=== PATIENT | male | born 1980 | race Caucasian/White ===

== ENCOUNTER 2017-03-16 20:04 | Inpatient (IN) ==
[2017-03-16] MEDS ORDERED: oxyCODONE/ACETAMINOPHEN 5-325 MG TABLET PO STA (21:34)
[2017-03-16] MEDS ORDERED: oxyCODONE/ACETAMINOPHEN 5-325 MG TABLET ONE (21:43)
--- NOTE | 2017-03-16 22:17 | Emergency Department Note ---
IChris Mantricia, am scribing for, and in the presence of, Vianey Roth DO 20:50. I, Vianey Roth DO, personally performed the services described in this documentation, ascribed by Charlie Perez in my presence, and it is both accurate and complete 216 . Arrival - Arrival Chief Complaint: Extremity Problem Stated Complaint: KNOT ON RIGHT SIDE OF SHOULDER/HURTING ED Nursing Triage Note: Patient to triage with c/o knot on right upper back behind shoulder that he just noticed today. area painful to touch and swollen. patient denies any injury to area. Mode of Arrival: Ambulatory Limitations: No Limitations Source: Patient Time Seen by Provider: 03/16/17 20:32 - History of Present Illness HPI Narrative: Pt is a 36 y/o white male arriving to ED with c/o right shoulder/back pain that started this morning. He stated that once he noticed the pain, he looked at his shoulder and there was a knot on the right side of his upper back. He states the area is painful to touch, swollen, and he is not able to raise his right arm. He describes the pain as constant with radiation down his arm. Pt reports taking a BC for pain but he has had no relief. Pt admits to smoking at least one pack of cigarettes per day but denies drugs or alcohol. He denies any other complaints and does not take any other medications. Onset (ago): day(s) Consistency: constant Severity: mild Allergies/Adverse Reactions: Allergies Allergy/AdvReac Type Severity Reaction Status Date / Time Penicillins AdvReac Difficulty Verified 03/16/17 20:12 Breathing Home Medications: Home Medications Medication Instructions Recorded Confirmed Type No Known Home Medications [No 03/16/17 03/16/17 History Known Home Medications] Review of System - Review of System 12 point system: reviewed and no additional remarkable complaints except as stated - Review of System Constitutional: Absent: chills, diaphoresis, fever Eyes: Absent: discharge, pain, redness Head/Ears/Nose/Throat: Absent: earache, epistaxis Respiratory: Absent: cough, respiratory distress, wheezing Cardiovascular: Absent: chest pain, palpitations Gastrointestinal: Absent: abdominal pain, nausea, vomiting, diarrhea Genitourinary male: Absent: urgency, dysuria, frequency Musculoskeletal: Present: arm pain (right), upper back pain (right upper back with swelling). Absent: leg pain, neck pain Skin: Absent: rash, lesions Neurological: Absent: headache, weakness Medical,Surgical,& Family Hx - Medical History Cardio: No history of: Hypertension Endocrine: No history of: Diabetes Mellitus (IDDM), Diabetes Mellitus (NIDDM) Respiratory: No history of: Asthma, COPD Renal: No history of: Renal Problems Genitourinary: No history of: Kidney Stones, Problems Gastrointestinal: No history of: Liver Problems, GI Problems - Surgical History Abdominal Surgeries: Surgical HX of: Appendectomy (1996), Hernia Repair (7 repairs) - Social History Smoking Status: Current every day smoker Frequency of Alcohol Use: None Type of Drug Use: None Exam Vital Signs: Vital Signs Temperature 97.4 F L 03/16/17 20:09 Pulse Rate 80 03/16/17 20:09 Respiratory Rate 16 03/16/17 20:09 Blood Pressure 123/75 03/16/17 20:09 O2 Sat by Pulse Oximetry 99 03/16/17 20:09 - General General appearance: alert, in no apparent distress - Head Head exam: Present: atraumatic, normocephalic, normal inspection - Eye Eye exam: Present: normal appearance, PERRL, EOMI - ENT ENT exam: Present: normal exam, normal oropharynx, mucous membranes moist, TM's normal bilaterally, normal external ear exam - Neck Neck exam: Present: normal inspection, full ROM, trachea midline. Absent: tenderness - Chest Chest inspection: Present: normal inspection, symmetric chest wall rise. Absent : tenderness - Respiratory Respiratory exam: Present: wheezes - Cardiovascular Cardiovascular exam: Present: normal rhythm, tachycardia, normal heart sounds - Abdominal Exam Abdominal exam: Present: soft, normal bowel sounds. Absent: distention, tenderness, guarding, rebound - Extremities Exam Extremities exam: Present: normal inspection, full ROM, normal capillary refill. Absent: tenderness, pedal edema - Back Exam Back exam: Present: tenderness, other (8x3 rectangular induration within back from armpit; TTP; no fluctuance noted) - Neurological Exam Neurological exam: Present: alert, oriented X3, CN II-XII intact, normal gait, reflexes normal - Psychiatric Psychiatric exam: Present: normal affect, normal mood - Skin Skin exam: Present: warm, dry, intact, normal color Course Course Narrative: [place] given for pain with mild relief. Bedside US does not reveal mass despite obvious exam finding. Decision to CT chest WO contrast for pulled muscle vs abscess vs ? Percocet given for continued pain with some relief. Radiologist called and reported large 5x3cm mass likely metastasis. Mulitple spiculated RUL lung lesion noted with large hilar lymphadenopathy noted. Patient was told of results. Will be admitted to Hospitalist for further workup. labs ordered. Results - Diagnostic Findings Procedure: CT - chest: image reviewed by me, report reviewed by me (Large 5x3 bony metastasis, hilar lymphadenopathy, RUL lung mass spiculated approx 3cm, likely cancer) Disposition Clinical Impression: Lung cancer metastatic to bone Case discussed with: patient Disposition: Still a Patient Condition: Stable
[2017-03-16 22:22] LABS: Basophils # 0.1 10*3/uL (0.0-0.2); Basophils % 0.7 % (0.0-0.8); Eosinophils # 0.3 10*3/uL (0.0-0.87); Eosinophils % 3.6 % (0.00-10.9); Hematocrit 37.4 VOL% (42.0-52.0); Immature Granulocytes % 0.5 %; Immature Granulocytes Absolute 0.05 #; Lymphocytes # 2.1 10*3/uL (1.4-4.0); Lymphocytes % 22.3 % (21.2-54.2); Mean Corpuscular HGB Conc 34.8 GM/DL (32-36); Mean Corpuscular Hemoglobin 32 PG (27-34); Mean Corpuscular Volume 92.8 FL (87-102); Mean Platelet Volume 10.3 FL (9.6-12.0); Monocytes # 0.6 10*3/uL (0.11-0.8); Monocytes % 6.1 % (1.7-12.7); Neutrophils # 6.2 10*3/uL (1.4-7.4); Neutrophils % 66.8 % (38.7-73.9); Platelet Count 216 T/CUMM (130-400); Red Blood Count 4.03 MC/CUMM (3.8-5.5); White Blood Count 9.2 T/CUMM (4-12)
[2017-03-16 22:39] LABS: Albumin 3.6 G/DL (3.4-5.0); Bilirubin,Total 0.4 MG/DL (0.2-1.0); Calcium 8.1 MG/DL (8.5-10.1); Osmolality,Calculated 289.8 MOS/KG (273-304); Potassium 3.7 MMOL/L (3.5-5.1); Total Protein 6.1 G/DL (6.4-8.3)
--- NOTE | 2017-03-16 23:26 | Hospitalist History & Physical ---
Assessment and Plan (1) Metastatic cancer Status: Acute Assessment and plan: Unknown to patient prior tonight. Chief complaint was shoulder pain which turned out to be a bony met. He has a past history of colon cancer several years ago but recent scans have not shown any signs of this. He only received radiation, no chemotherapy or surgery. He has a long smoking history and a strong family history of both lung and colon cancer. I suspect that the histology will be adenocarcinoma with a colon versus long origin. I suspect that the next best step will be an interventional radiology bone biopsy of the right scapular tumor as it is an easily accessible distant met. I advised patient that prognosis and treatment will very much depend on the genetics of his cancer. Checking coags in preparation for likely bone biopsy on Saturday. Should notify oncology of admission in the morning for approval of workup. I spent a long time counseling the patient and his family on options for treatment including palliative radiation, systemic chemotherapy, and the unlikelihood that surgery would be of any benefit. Current Visit: Yes (2) Cancer related pain Status: Acute Assessment and plan: Start IV morphine as needed and start dexamethasone for bony pain. May benefit from palliative radiation to right scapula +/- bisphosphonate. Current Visit: Yes (3) Hyperglycemia Status: Acute Assessment and plan: Patient denies history of diabetes. Check fasting glucose in the morning. Current Visit: Yes History of Present Illness Chief complaint: Shoulder pain History of present illness: Mr. Grover is a 36 year old male with past history of colon cancer that presented with a chief complaint of shoulder pain. Onset gradual. Duration several days. Quality Sharp and constant. Somewhat relieved by Percocet given in the emergency department. Patient is a man of few words and is not entirely forthcoming about his past medical history. His son and [id number] present at the bedside are illuminating. Apparently when his adult son was a child, maybe 12 years ago he received radiation for colon cancer. They wanted to do a colon resection with an ostomy at that time but as he was averse to the ostomy and he was lost to follow-up. He did not receive chemotherapy. He continues to have trouble passing stools but denies any vomiting, weight loss, blood in stool. Several members of his family on his mother's side have had lung and colon cancer. In the [place] emergency department in workup of his shoulder pain he received a CT scan which revealed a 5 x 3 cm mass in the scapula as well as lymphadenopathy in the chest and a 3 cm right upper lobe mass. He denies any dyspnea, cough, hematemesis. He denied any chest pain but his family says that he will sometimes have chest pain. He is interested in pursuing a workup. He denied any headache, numbness, focal weakness. He is a pack per day smoker for many years. I have reviewed the workup performed in the emergency department including lab and imaging data. I have reviewed past scans in the chart. I have discussed his case with emergency department providers. Home Medications Medication Instructions Recorded Confirmed Type No Known Home Medications [No 03/16/17 03/16/17 History Known Home Medications] Allergies Allergy/AdvReac Type Severity Reaction Status Date / Time Penicillins AdvReac Difficulty Verified 03/16/17 20:12 Breathing Medical,Surgical,& Family Hx - Medical History Cardio: No history of: Hypertension Endocrine: No history of: Diabetes Mellitus (IDDM), Diabetes Mellitus (NIDDM) Respiratory: No history of: Asthma, COPD Renal: No history of: Renal Problems Genitourinary: No history of: Kidney Stones, Problems Gastrointestinal: History of: Gastrointestinal Cancer (Colon cancer several years ago, received radiation) No history of: Liver Problems, GI Problems - Surgical History Abdominal Surgeries: Surgical HX of: Appendectomy (1996), Hernia Repair (7 repairs) - Family History Family History: Reports;: Family Cancer (Multiple members of mother's family with lung and colon cancer), Family Diabetes - Social History Smoking Status: Current every day smoker Have you smoked in the last 12 months: Yes Frequency of Alcohol Use: None Type of Drug Use: None Marital Status: Single Lives With:: Children Functional capacity: independent ambulation Review of systems: - Constitutional Constitutional: Absent: chills, fatigue, fever(s), night sweats, weight loss - EENT Eyes: Absent: blurry vision Ears: Absent: decreased hearing, ear pain Nose, mouth and throat: Absent: nasal congestion, sore throat - Cardiovascular Cardiovascular: Absent: chest pain at rest, chest pain with activity, dyspnea on exertion, edema, orthopnea, palpitations - Respiratory Respiratory: Absent: cough, dyspnea, hemoptysis - Gastrointestinal Gastrointestinal: Present: Constipation absent: abdominal pain, diarrhea, dysphagia, hematemesis, hematochezia, melena, nausea, vomiting - Genitourinary Genitourinary: Absent: difficulty urinating, dysuria, hematuria - Musculoskeletal Musculoskeletal: Present: Right shoulder pain - Neurological Neurological: Absent: confusion, dizziness, focal weakness, headache(s), numbness, paresthesias, syncope - Psychiatric Psychiatric: Absent: anxiety, depression - Endocrine Endocrine: Absent: cold intolerance, heat intolerance, polydipsia, polyuria - Hematologic/Lymphatic Hematologic/Lymphatic: Absent: easy bleeding, easy bruising, lymphadenopathy Exam - Constitutional Vitals: Period Temp Pulse Resp BP Sys/Villaseñor Pulse Ox Last 24 Hr 97.4 F-97.4 F 80-95 16-18 123-160/75-90 99-99 General appearance: over weight, other (Middle-aged white male lying on stretcher pleasant cooperative) Exam: - Eye Eye exam: Present: EOMI. Absent: conjunctival injection, scleral icterus Pupils: Present: [place] - ENT ENT exam: Present: normal external ear exam, normal oropharynx - Expanded ENT Exam Mouth exam: Present: moist, poor dentition - Neck Neck exam: Present: normal inspection. Absent: lymphadenopathy, thyromegaly - Respiratory Respiratory exam: Present: Focal wheezing in right upper lobe, otherwise clear to auscultation bilaterally. Absent: accessory muscle use, rales, rhonchi - Cardiovascular Cardiovascular exam: Present: regular rate and rhythm. Absent: diastolic murmur , systolic murmur - Expanded Cardiovascular Exam Peripheral pulses: 2+: posterior tibialis (L), posterior tibialis (R) - GI/Abdominal GI/Abdominal exam: Present: normal bowel sounds, soft. Absent: distended, hyperactive bowel sounds, hypoactive bowel sounds, organomegaly, tenderness, rebound - Extremities Exam Extremities exam: Present: Large hyperpigmented area with excessive hair growth over right shoulder. Lower scapula with firm and exquisitely tender area. Absent: edema - Neurological Exam Neurological exam: Present: alert, oriented X3, CN II-XII intact. Absent: motor sensory deficit - Psychiatric Psychiatric exam: Present: normal affect - Skin Skin exam: Present: warm, dry. Absent: diaphoretic, rash Results - Labs CBC & BMP: 03/16/17 22:10 03/16/17 22:10 - Diagnostic Findings Procedure: CT - chest: report reviewed by me
[2017-03-17] MEDS ORDERED: ACETAMINOPHEN 325 MG TABLET PO PRN (00:37)
[2017-03-17] MEDS: DEXAMETHASONE 4 MG TABLET PO SCH ×3 (01:10→21:05)
[2017-03-17] MEDS: ENOXAPARIN 40 MG/0.4 ML SYRINGE SUBCUT SCH (01:10)
--- NOTE | 2017-03-17 07:54 | CT Report ---
CT chest wo con Indication: Clinical concern for abscess. Location not specified. History provided "large induration painful. Abscess versus muscle" Comparison: None. Technique: CT chest was performed without administration of intravenous contrast. In addition to multiple contiguous axial source images, coronal and sagittal MPR series were provided. The CT examination was performed using one or more of the following dose reduction techniques: Automatic exposure control, adjustment of the mA and kV according to patient size, use of acute or iterative reconstruction techniques. Findings: Right perihilar mass measuring 2.3 x 2.9 x 3.3 cm is present with additional focal air space attenuation suggesting nodule along the major fissure within the right upper lobe image #37. Additionally present within the right upper lobe, there are thickened intralobular septal lines and some thickening of interlobular septal lines with the appearance noted. Additionally within the right upper lobe image #37, small 3 to 4 mm subpleural pulmonary nodule is demonstrated. Additional pulmonary nodule right upper lobe image #49 measures 6 to 7 mm. Small noncalcified pulmonary nodules left lower lobe image #[id number] measures 45 mm maximum dimension. Pulmonary nodule left upper lobe image #55 is not calcified and measures 6 to 7 mm. Additional 3 to 4 mm subpleural pulmonary nodule lateral left upper lobe image #48 is present. Calcified granuloma left upper lobe image #45 is present. 3 to 4 mm noncalcified pulmonary nodule left upper lobe image #42 is present. Within the left lower lobe there is a geographic region of relative hypoattenuation of lung parenchyma that could reflect air trapping or mosaic perfusion. No pleural effusions are present. The right upper lobe bronchus is significantly narrowed by the described central right upper lobe mass. In addition to the right upper lobe mass, enlarged right hilar lymph nodes are present measuring up to 3 cm in short axis dimension image #48. Subcarinal lymph nodes are also enlarged measuring 3.0 cm short axis dimension. Upper right paratracheal lymph nodes are enlarged measuring 1.8 cm short axis dimension. There is a permeative lesion involving the right scapular tip with cortical destruction and soft tissue mass that measures 4.3 x 5.4 x 4.5 cm. Spleen is enlarged measuring 19.6 x 4.0 by at least 10.7 cm. No adenopathy is noted within the upper abdomen. Impression: 1. Permeative expansile lesion with cortical destruction involving the right scapular tip is demonstrated with soft tissue mass associated. The appearance is most worrisome for neoplastic process. 2. Multiple pulmonary nodules are demonstrated bilaterally throughout the lung parenchyma the largest of which lies within the right upper lobe adjacent to the hilum. Accompanying these nodules, multiple lymph nodes within the right hilum, subcarinal mediastinum, and right paratracheal region are enlarged. These findings are most worrisome for neoplasm. Given the number of noncalcified pulmonary nodules, metastatic disease is not excluded. 3. The lung parenchyma within the right upper lobe demonstrates thickened appearance of intralobular septal lines and some beaded appearing thickened interlobular septal lines. Lymphangitic spread of carcinoma cannot be excluded. Other considerations could include infection. 4. The visualized portion of the upper abdomen with the exception of splenomegaly demonstrates no abnormality. Also, no additional bony lesions are demonstrated. 03/17/2017 7:37 AM PROCEDURE INTERPRETED AT [facility] DEPARTMENT OF RADIOLOGY Final Report Signed by: Dr. Aryan Finn
[2017-03-17] MEDS: MORPHINE 2 MG/1 ML SYRINGE IV PRN (07:59)
[2017-03-17 08:00] LABS: PT Patient Result 10.9 SECS; Partial Thromboplastin Time 27.8 SECS (0-40)
[2017-03-17] MEDS ORDERED: ONDANSETRON 4 MG/2 ML VIAL IV PRN ×2 (08:05→08:06)
[2017-03-17] MEDS ORDERED: oxyCODONE/ACETAMINOPHEN 5-325 MG TABLET PO PRN (08:05)
--- NOTE | 2017-03-17 09:57 | Hospitalist Progress Note ---
Assessment and Plan (1) Metastatic cancer Status: Acute Assessment and plan: The patient is admitted to the hospital with right shoulder pain and evidence of metastatic disease in the scapula. The patient will have appropriate narcotic pain relief and oncology consultation. Current Visit: Yes (2) Cancer related pain Status: Acute Current Visit: Yes (3) History of colon cancer Status: Chronic Current Visit: Yes (4) Hyperglycemia Status: Chronic Current Visit: Yes Hospitalist: Subjective Interval history: The patient presents to the hospital with right shoulder pain. The discomfort has been gradually increasing over the last several months and he initially misstook it for musculoskeletal discomfort. The patient came to the emergency room yesterday evening and was diagnosed with metastatic disease in the scapula. The patient also has lung mass apparent. The patient has history of colon cancer which was imperfectly treated on account of his desire to avoid abdominal surgery. The patient is now admitted to the hospital for pain control and further oncology evaluation. Exam - Constitutional Vitals: Period Temp Pulse Resp BP Sys/Villaseñor Pulse Ox Last 24 Hr 97.6 F-98.2 F 71 18-20 117-128/64-71 95-96 Exam: Chest clear, abdomen soft, heart has regular rate and rhythm. Extremities without edema. Results - Labs CBC & BMP: 03/16/17 22:10 03/16/17 22:10 Lab Results: I have reviewed the past 24 hour labs Quality Measures - Stroke Symptom Onset Unknown: No
--- NOTE | 2017-03-17 10:00 | Oncology Consult Note ---
History of Present Illness History of present illness: Mr. Grover is a 36 year old male who was admitted with right shoulder pain and a right hilar mass as well as a mass-effect near his right scapula. In addition, he has a 15 year history of changes in the skin over his right shoulder that may be completely unrelated. When I began asking the patient about a history of colon cancer, he tells me that he never had colon cancer and never received treatment for it. He has smoked cigarettes since about the age of 13 and has smoked 1-1-1/2 packs daily. There is no history of hemoptysis but he has pain in the right chest and shoulder with coughing. No sputum production and he gives no history of asthma or emphysema although he can hear himself wheezing. I asked him about this after I examined him. Social history: Long history of cigarette smoking. He does not use alcohol. Past medical history is negative for any significant illnesses or surgery except for an appendectomy in 1996 and a hernia repair on several occasions. Family history: Positive for lung and colon cancer. ROS Gen.: He actually has been in relatively good health until recently. Eyes: No history of chronic disease, infections or visual loss. ENT: No history of chronic infections, epistaxis, chronic sore throat Lungs: See present illness Cardiovascular: No history of angina, coronary artery disease, congestive heart failure, cardiovascular surgery or DVT/VTE GI: No history of upper or lower GI bleeding, melena, dysphagia, odynophagia, liver disease, gallbladder disease or pancreatic disease. : No history of kidney stones, chronic kidney infections or hematuria. Musculoskeletal: No history of chronic bone or joint pain or focal muscle atrophy or bone or joint deformity. Neurologic: No history of seizures, convulsions or paralysis. Psychiatric: No history of chronic psychiatric illness or psychiatric medications. Lymphatic: No history of significant or long-term lymphadenopathy Hematologic: No history of anemia, bleeding disorders or blood dyscrasias or long-term elevation or depression white cell count or petechiae. Skin: He has a distinctive rash over the right shoulder and the skin is rough and hyperpigmented in this area, almost in a dermatome fashion. Physical examination: General: The patient appears acutely ill and is clearly in pain and grimaces when he moves. Eyes: Normal lids and conjunctivae. ENT: His teeth are in very poor condition. His oral mucosa and pharynx appear normal. His hearing is normal. Salivary glands are normal. Neck: His trachea is midline and he has no neck masses. Thyroid appears normal. Chest and pulmonary: He has a palpable mass that is relatively large and appears smooth but somewhat firm adjacent to his scapula. In addition, he has hyperpigmentation over most of the right chest both anteriorly and posteriorly. Breath sounds are somewhat coarse throughout and he has expiratory wheezing with prolonged expiratory phase of respiration. He grimaces in pain while breathing the. Cardiovascular: His heart rhythm is regular without murmur, gallop or rub. There is no jugular venous distention, clubbing, cyanosis or edema. Radial pulses are normal. Abdomen: There are no abdominal masses, organomegaly, distention, tenderness or ascites. Musculoskeletal: See chest examination. He has a tender, palpable mass in the right scapular region. Otherwise I find no focal muscle atrophy or bone or joint deformity. Neurologic: Cranial nerves II through XII are intact. There are no focal neurologic deficits. Nodes: I find no submental, submandibular, cervical or supraclavicular or axillary adenopathy. Skin: He has a pigmented rash extending from the right posterior to the right anterior shoulder as well as sweeping around under the axilla. I am unsure of what is causing this rash and it actually may need to be biopsied. I do not know whether this is related to his shoulder pain or not. Lab work on this admission includes a normal CBC except for hemoglobin of 13.0. He has a normal INR 1.0. His CEA level drawn today is 56.5 and this could easily be due to a lung cancer. His comprehensive metabolic profile includes an alkaline phosphatase of 168 but is otherwise normal. A CT of his chest done without contrast demonstrates a right perihilar mass and there is a right upper lobe area of thickening and apparent subpleural nodularity as well as noncalcified nodules in the left lung and some small subpleural nodules on the left side. I examined the CT film and I am also wondering if there are not abnormalities within the liver. Impression: #1: I suspect the patient has a primary lung cancer and it may be stage IV with invasion of the chest wall. #2: His CEA level elevation is probably from his lung mass but we need to repeat scans with contrast and also include his abdomen and pelvis. #3: The patient has COPD #4: I am unsure of the significance of the patient's pigmented area of rash over his right shoulder and I am not sure of the significance of the mass in the right scapular area. These both, (the rash and the mass) may need biopsies. I have told the patient that we should get pulmonary consultation and I have discussed patient's case with Dr. Marr. I am going to go ahead and order CTs of the chest, abdomen and pelvis with contrast. We will probably need a PET scan and possibly a bone scan as well. The patient has extremely bad teeth. Eventually we may need to question him further about his social habits in the past. Home Medications Medication Instructions Recorded Confirmed Type No Known Home Medications [No 03/16/17 03/17/17 History Known Home Medications] Allergies Allergy/AdvReac Type Severity Reaction Status Date / Time Penicillins AdvReac Difficulty Verified 03/16/17 20:12 Breathing Medical,Surgical,& Family Hx - Medical History Cardio: No history of: Hypertension Endocrine: No history of: Diabetes Mellitus (IDDM), Diabetes Mellitus (NIDDM) Respiratory: No history of: Asthma, COPD Renal: No history of: Renal Problems Genitourinary: No history of: Kidney Stones, Problems Gastrointestinal: History of: Gastrointestinal Cancer (Colon cancer several years ago, received radiation (5 tx's)), GI Problems No history of: Liver Problems Other: History of: Cancer (Hx of colon cancer in his mid 20's) - Surgical History Thoracic Surgeries: Patient denies;: Lobectomy Abdominal Surgeries: Surgical HX of: Appendectomy (1996), Hernia Repair (7 repairs) - Family History Family History: Reports;: Family Cancer (Multiple members of mother's family with lung and colon cancer), Family Diabetes - Social History Smoking Status: Current every day smoker Frequency of Alcohol Use: None Type of Drug Use: None Exam - Constitutional Vitals: Period Temp Pulse Resp BP Sys/Villaseñor Pulse Ox Last 24 Hr 97.6 F-98.2 F 71 18-20 117-128/64-71 95-96 Results - Labs CBC & BMP: 03/16/17 22:10 03/16/17 22:10 Quality Measures - Stroke Symptom Onset Unknown: No
[2017-03-17] MEDS: oxyCODONE/ACETAMINOPHEN 5-325 MG TABLET PO PRN ×2 (12:20→21:06)
--- NOTE | 2017-03-17 14:07 | Pulmonology Consult Note ---
Assessment and Plan (1) Right hilar mass Status: Acute Assessment and plan: Reviewing the CT and his history I think is highly likely that this is a bronchogenic carcinoma. It can likely be assessed with fiberoptic bronchoscopy and we will do that in the morning. If not then a needle biopsy would be recommended. Since there is a lytic lesion in his scapula, this is likely to be stage IV disease. I do favor this being primary bronchogenic. Current Visit: Yes (2) Right scapular lesion Status: Acute Assessment and plan: Painful mass lower end of his right scapula. Likely to be metastatic disease. This of course could be biopsied if need be. Current Visit: Yes (3) Tobacco abuse Status: Acute Assessment and plan: Patient has [id number] smoking history. Has family history of lung cancer. Obviously needs to stop smoking. Newly diagnosed patients with lung cancer who stopped smoking at the time of the diagnosis on the average live twice as long as those who continue smoking. Current Visit: Yes History of Present Illness Chief complaint: Right shoulder pain History of present illness: Mr. Grover is a 36 year old male who comes in with pain in his right shoulder for several months. He is a smoker about 40 pack years which would be a pack and a half a day for 23 years. He has not had any weight loss. He has a mild chronic cough. He has heard himself wheeze. Has no known COPD. He was found to have a right hilar mass about 3 cm in size with adenopathy on his chest CT. There is also a lytic lesion over the lower right scapula where the masses palpable in his back. I was asked to see him to evaluate this for probable bronchogenic carcinoma. The patient relates to me that he had a scope done about 2 years ago at [facility]. He said they thought it was cancer. He said he ran from it and did not follow up with them. He does not know for certain whether he has a colon lesion or not. Home Medications Medication Instructions Recorded Confirmed Type No Known Home Medications [No 03/16/17 03/17/17 History Known Home Medications] Allergies Allergy/AdvReac Type Severity Reaction Status Date / Time Penicillins AdvReac Difficulty Verified 03/16/17 20:12 Breathing 12 point system: reviewed and no additional remarkable complaints except as stated - Respiratory Respiratory: Present: cough, dyspnea on exertion, wheezing - Musculoskeletal Musculoskeletal: Present: arthralgias (Right shoulder pain) Exam (Pulmonay) H&P - Constitutional Vitals: Period Temp Pulse Resp BP Sys/Villaseñor Pulse Ox Last 24 Hr 97.3 F-98.2 F 71-80 18-20 117-128/64-71 95-96 Exam: Vital signs are normal. Pupils react to light. Throat is clear. Neck supple no bruits. I do not feel any nodes in the supraclavicular areas. Chest reveals some minimal expiratory wheezes. Bilaterally. Prolonged expiratory phase. Heart normal rate and rhythm no murmurs no rubs no gallops. Abdomen soft nontender no masses. Bowel sounds present. Extremities no clubbing cyanosis edema. Calves nontender. The right shoulder has hypopigmented area going down to the scapula in the back. There is a palpable mass at the inferior pole of the right scapula and it is somewhat tender. Medical,Surgical,& Family Hx - Medical History Cardio: No history of: Hypertension Endocrine: No history of: Diabetes Mellitus (IDDM), Diabetes Mellitus (NIDDM) Respiratory: No history of: Asthma, COPD Renal: No history of: Renal Problems Genitourinary: No history of: Kidney Stones, Problems Gastrointestinal: History of: Gastrointestinal Cancer (Colon cancer several years ago, received radiation (5 tx's)), GI Problems No history of: Liver Problems Other: History of: Cancer (Hx of colon cancer in his mid 20's) - Surgical History Thoracic Surgeries: Patient denies;: Lobectomy Abdominal Surgeries: Surgical HX of: Appendectomy (1996), Hernia Repair (7 repairs) - Family History Family History: Reports;: Family Cancer (Multiple members of mother's family with lung and colon cancer), Family Diabetes - Social History Smoking Status: Current every day smoker Frequency of Alcohol Use: None Type of Drug Use: None Results - Labs CBC & BMP: 03/16/17 22:10 03/16/17 22:10 Lab Results: I have reviewed the past 24 hour labs - Diagnostic Findings Procedure: CT - chest: image reviewed by me (2-3 cm mass at the right hilum. It appears to be involving the right upper lobe primarily posterior segment. There are also other pulmonary nodules and there is lymphadenopathy in the mediastinum. Has a lesion in the inferior pole of the right scapula. All of this highly suggestive of metastatic carcinoma.) Quality Measures - Stroke Symptom Onset Unknown: No
[2017-03-17] MEDS: NICOTINE 21 MG/24 HR PATCH TRANSDERM SCH (15:07)
[2017-03-18 05:31] LABS: Basophils % 0.2 % (0.0-0.8); Eosinophils % 0.2 % (0.00-10.9); Hematocrit 36.6 VOL% (42.0-52.0); Hemoglobin 12.2 GM/DL (14.0-18.0); Immature Granulocytes % 0.7 %; Immature Granulocytes Absolute 0.07 #; Lymphocytes % 9.6 % (21.2-54.2); Mean Corpuscular HGB Conc 33.3 GM/DL (32-36); Mean Corpuscular Hemoglobin 31 PG (27-34); Mean Corpuscular Volume 92.7 FL (87-102); Mean Platelet Volume 10.1 FL (9.6-12.0); Monocytes # 0.4 10*3/uL (0.11-0.8); Monocytes % 4.1 % (1.7-12.7); Neutrophils # 9.1 10*3/uL (1.4-7.4); Neutrophils % 85.2 % (38.7-73.9); Platelet Count 222 T/CUMM (130-400); Red Blood Count 3.95 MC/CUMM (3.8-5.5); Red Cell Distribution Width 13.9 % (9.3-17.3); White Blood Count 10.6 T/CUMM (4-12)
[2017-03-18 06:09] LABS: Albumin 3.7 G/DL (3.4-5.0); Bilirubin,Total 0.7 MG/DL (0.2-1.0); Calcium 8.4 MG/DL (8.5-10.1); Magnesium 2.2 MG/DL (1.8-2.4); Osmolality,Calculated 284.3 MOS/KG (273-304); Potassium 3.9 MMOL/L (3.5-5.1); Total Protein 6.1 G/DL (6.4-8.3)
[2017-03-18] MEDS ORDERED: MEPERIDINE 50 MG/1 ML VIAL IM ONE (07:00)
[2017-03-18] MEDS ORDERED: PROMETHAZINE 25 MG/1 ML VIAL IM ONE (07:00)
[2017-03-18] MEDS ORDERED: MIDAZOLAM 2 MG/2 ML VIAL ONE (07:11)
[2017-03-18] MEDS ORDERED: LIDOCAINE 1% 20 ML VIAL MISC INJ ONE (07:30)
[2017-03-18] MEDS ORDERED: MIDAZOLAM 2 MG/2 ML VIAL IV ONE (07:30)
--- NOTE | 2017-03-18 08:11 | Operative Note ---
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 He was transported to the bronchoscopy suite. After an appropriate timeout to be sure we were dealing with [facility] [place], patient was topically anesthetized in the nose and nasopharynx with Xylocaine. 3 L of nasal oxygen was placed in his left naris. 4 mg of Versed was given intravenously to the point of sedation. The fiberoptic bronchoscope was introduced via the right naris. Vocal cords were identified and noted to function normally with phonation. After further topical anesthesia the trachea was entered and was free of lesions. The shaylee was sharp. Left lung was normal. Right middle and lower lobes were normal. The right upper lobe showed endobronchial tumor obstructing the posterior segment. There was marked narrowing of the apical and anterior segments. The dividers were all markedly thickened. It appeared to be involved all the way to the takeoff of the upper lobe with that divider being thickened as well. Photos were taken. We took direct vision biopsies at the takeoff of the posterior segment right upper lobe. Brushings were then obtained from the anterior segment and posterior segments right upper lobe. There was minimal bleeding. Bronchial washings were obtained. The bleeding subsided with saline irrigation and scope tip pressure. The bronchoscope was removed. Patient returned to his room in stable condition. Anesthesia: conscious sedation Surgeon / Physician: Yossi Marr Estimated blood loss: minimal Specimens: other (Biopsies 2, brushings 2, bronchial washings right upper lobe ) Condition: stable Disposition: floor Results - Labs CBC & BMP: 03/18/17 05:13 03/18/17 05:13 Discharge Plan - Discharge Medications No Action No Known Home Medications [No Known Home Medications] - Follow Up or Referral - Forms/Instructions
--- NOTE | 2017-03-18 08:16 | Pulmonology Progress Note ---
Pulmonary - PN: Subj Interval history: This 36-year-old man came in with pain at the bottom of his right scapula. He was found to have what appears to be metastatic disease there. CT scan showed a right lung mass. He was taken for bronchoscopy this morning, please see that report. The right upper lobe is involved. There is visible tumor. There is compression of 2 of the 3 segments and total obstruction of the posterior segment right upper lobe. Pathology should be out in a day or 2. I do not think this would be resectable based on the medial spinal adenopathy noted on CT. certainly has the endobronchial appearance of a bronchogenic carcinoma. Exam (Progress Note) - Constitutional Vitals: Period Temp Pulse Resp BP Sys/Villaseñor Pulse Ox Last 24 Hr 97.3 F-99.6 F 68-90 - 118-146/58-80 95-100 Exam: Patient's alert responsive vital signs normal pupils react light throat clear neck supple no bruits. Chest reveals a few rhonchi on the right side left side is clear. Heart normal rate rhythm no murmurs. abdomen soft nontender no masses. Extremities no clubbing cyanosis edema. Calves nontender. Results - Labs CBC & BMP: 03/18/17 05:13 03/18/17 05:13 Lab Results: I have reviewed the past 24 hour labs Assessment and Plan (1) Right hilar mass Status: Acute Assessment and plan: Reviewing the CT and his history I think is highly likely that this is a bronchogenic carcinoma. It can likely be assessed with fiberoptic bronchoscopy and we will do that in the morning. If not then a needle biopsy would be recommended. Since there is a lytic lesion in his scapula, this is likely to be stage IV disease. I do favor this being primary bronchogenic. 03/18/2017 await pathology from biopsies today. Suspect this is a bronchogenic carcinoma. Current Visit: Yes (2) Right scapular lesion Status: Acute Assessment and plan: Painful mass lower end of his right scapula. Likely to be metastatic disease. This of course could be biopsied if need be. 03/18/2017 likely metastatic disease. Current Visit: Yes (3) Tobacco abuse Status: Acute Assessment and plan: Patient has [id number] smoking history. Has family history of lung cancer. Obviously needs to stop smoking. Newly diagnosed patients with lung cancer who stopped smoking at the time of the diagnosis on the average live twice as long as those who continue smoking. Current Visit: Yes
--- NOTE | 2017-03-18 08:45 | Oncology Progress Note ---
Oncology Subjective PN Interval history: Mr. Grover is being evaluated for suspected newly found lung cancer. He has undergone fiberoptic bronchoscopy by Dr. Marr and biopsies were done. The results are pending. In addition, he has CTs of the chest, abdomen and pelvis with contrast ordered. He is still drowsy from the bronchoscopy. I did talk with him and told him we are proceeding with the staging studies that I would have more information tomorrow. This is most likely metastatic lung cancer. Exam - Constitutional Vitals: Period Temp Pulse Resp BP Sys/Villaseñor Pulse Ox Last 24 Hr 97.3 F-99.6 F 68-99 - 118-146/58-92 95-100 Results - Labs CBC & BMP: 03/18/17 05:13 03/18/17 05:13 Quality Measures - Stroke Symptom Onset Unknown: No
--- NOTE | 2017-03-18 08:56 | XRay Report ---
Portable chest Date: 03/18/2017 Clinical history: Postbronchoscopy Comparison: 03/26/2012, CT chest, 03/16/2017 Technique: Portable AP sitting chest Findings: The heart is normal in size. No pneumothorax. Increased density in the mediastinum and hilar location, especially the right. Atelectasis/infiltration especially in the right upper lobe and at the left lung base with ill-defined nodular densities. Destructive mass involving the inferior right scapula. Impression: Mediastinal and hilar adenopathy/mass with associated atelectasis/infiltration especially in the right upper lobe and at the left lung base with small nodular densities and destructive lesion involving the inferior right scapula. These findings are felt consistent with probable neoplastic process. No pneumothorax. PROCEDURE INTERPRETED AT [facility] DEPARTMENT OF RADIOLOGY Final Report Signed by: Dr. Haritha Shirley
[2017-03-18] MEDS: NICOTINE 21 MG/24 HR PATCH TRANSDERM SCH (09:42)
[2017-03-18] MEDS: MORPHINE 2 MG/1 ML SYRINGE IV PRN (09:45)
[2017-03-18] MEDS: DEXAMETHASONE 4 MG TABLET PO SCH ×2 (13:00→21:13)
--- NOTE | 2017-03-18 13:33 | Hospitalist Progress Note ---
Assessment and Plan (1) Metastatic cancer Status: Acute Assessment and plan: Suspected metastatic lung cancer patient is status post bronchoscopic and biopsy. Patient is being followed by the pulmonary and oncology will follow the recommendation Current Visit: Yes (2) Right scapular lesion Status: Acute Assessment and plan: Patient is on analgesics pain is controlled continue current regimen Current Visit: Yes (3) Tobacco abuse Status: Acute Assessment and plan: On nicotine patch Current Visit: Yes (4) Anemia Status: Acute Assessment and plan: We will continue to monitor mild anemia on lab work Current Visit: Yes Hospitalist: Subjective Interval history: Mr. Grover is a 36 year old male with past history of colon cancer that presented with a chief complaint of right shoulder pain over scapula area. History of long-term smoking about pack since age 14. He was evaluated and found to have multiple pulmonary nodule largest in the right upper lobe. Multiple lymphadenopathies and destruction of the right scapular tip noted. Metastatic lung disease suspected patient underwent bronchoscopy with the washing and a biopsy today. He has no subjective symptoms except right scapular pain. No fever chills or weight loss Exam - Constitutional Vitals: Period Temp Pulse Resp BP Sys/Villaseñor Pulse Ox Last 24 Hr 97.6 F-99.6 F 65-99 13-22 122-146/58-92 95-100 General appearance: no acute distress - Respiratory Respiratory exam: Present: clear to auscultation bilaterally, chest wall tenderness (Tenderness right upper back at the scapular area). Absent: rales, rhonchi - GI/Abdominal GI/Abdominal exam: Present: normal bowel sounds, soft. Absent: distended, tenderness - Extremities Exam Extremities exam: Absent: edema - Neurological Exam Neurological exam: Present: alert, oriented X3 Results - Labs CBC & BMP: 03/18/17 05:13 03/18/17 05:13 Lab Results: I have reviewed the past 24 hour labs Quality Measures - Stroke Symptom Onset Unknown: No
--- NOTE | 2017-03-18 13:33 | CT Report ---
Referring physician: Eloy Chapin EXAM: CT chest, abdomen and pelvis with contrast DATE: March 18, 2017 COMPARISON: CT chest without contrast March 16, 2017, CT abdomen and pelvis February 09, 2015 REASON: Right hilar mass with apical mass and liver metastasis TECHNIQUE: Axial images of the chest, abdomen and pelvis were obtained after administration of 100 cc of Omnipaque 350 IV contrast. Oral contrast was also administered. Sagittal and coronal reformatted images were provided. Total DLP was 2983.2 mGy*cm. CT CHEST FINDINGS: Vascular/heart: The thoracic aorta is normal in size, and the central pulmonary arteries appear patent. The distal pulmonary artery branches are not well evaluated. The heart is normal in size, and no pericardial effusion is seen. Lymph nodes: There are multiple enlarged mediastinal lymph nodes, including right paratracheal, precarinal and subcarinal lymph nodes. A right paratracheal lymph node measures 3.0 cm in short axis diameter on image 24, and a subcarinal lymph node on image 40 measures 2.4 cm in short axis diameter. This represents a new finding compared to March 27, 2012. A right perihilar mass is present and could represent a primary neoplasm or metastatic adenopathy. It measures approximately 4.8 x 4.8 cm on image 38, series 4 and 3.4 cm in craniocaudal dimension. Right hilar adenopathy is also present. No suspicious axillary adenopathy is seen. Other mediastinum: There is minimal contrast within the esophagus. Lungs: There is minimal dependent atelectasis within both lungs. There also mild scattered opacities within the right upper lobe, which mainly have a groundglass appearance. This likely represents postobstructive change, but pneumonia is not excluded. There is also narrowing of some of the bronchi at the right upper lobe. Evaluation for noncalcified nodules in this region is limited by these opacities, and follow-up would be helpful. A possible noncalcified nodule was described within the posterior aspect of the right upper lobe on image 27, but this is difficult to distinguish from the above-mentioned opacities within the right upper lobe. There are a few additional small noncalcified nodules within both lungs which are stable compared to March 16, 2017. Comparison to the prior study of March 27, 2012 is difficult due to motion artifact and atelectasis. However, there is a 0.7 cm noncalcified nodule within the basilar portion of the left lower lobe on image 57, which is not seen on the prior study of March 27, 2012. This could represent a metastatic nodule. No pneumothorax or pleural effusion is identified. Bones: There is again an erosive soft tissue mass involving the inferior aspect of the right scapula. This is difficult to accurately measure but is concerning for osseous metastatic disease. IMPRESSION: 1. Mediastinal and right hilar adenopathy is present. This is concerning for metastatic adenopathy. There is also a right hilar mass which could represent a large metastatic lymph node or primary neoplasm. These findings are new compared to March 27, 2012 but stable compared to March 16, 2017. 2. There is an erosive lesion involving the inferior aspect of the right scapula as described on the study performed on March 16, 2017. 3. Small noncalcified nodules are present within both lungs. Comparison to the prior study of March 27, 2012 is difficult due to motion artifact and atelectasis and due to opacities within the right upper lobe today. However, at least one of these nodules within the left lower lobe is new and could represent metastatic disease. ABDOMEN AND PELVIS FINDINGS: ABDOMEN: Liver: Unremarkable. Gallbladder and bile ducts: The gallbladder is unremarkable. No biliary duct dilatation is present. Pancreas: Unremarkable. Spleen: The spleen is enlarged, measuring 20 cm in AP dimension. Adrenals: Unremarkable. Kidneys and ureters: No hydronephrosis is present, and no suspicious renal lesion is identified. The ureters are unremarkable as visualized. PELVIS: Bladder: Unremarkable. Reproductive: Unremarkable as visualized. ABDOMEN AND PELVIS: Bowel: There is no evidence of bowel obstruction or inflammation. Stool is noted within the distal small bowel. Appendix: The appendix is not identified, but there are no secondary signs of appendicitis. Vasculature: The abdominal aorta is normal in size. Peritoneum/retroperitoneum: No free air or ascites is seen. Lymph nodes: There are a few upper normal-sized lymph nodes within the upper abdomen in the nani hepatis region. However, no suspicious adenopathy is seen within the abdomen or pelvis. Abdominal/pelvic wall: There is minimally prominent fat within the left inguinal canal. Bones: There is degenerative change at the pelvis with subchondral sclerosis at both SI joints. IMPRESSION: 1. Splenomegaly. 2. No suspicious adenopathy is seen within the abdomen or pelvis, and no suspicious hepatic lesion is identified. The CT exam was performed using one or more of the following dose reduction techniques: Automated exposure control and adjustment of the mA and/or kV according to patient size. PROCEDURE INTERPRETED AT [facility] DEPARTMENT OF RADIOLOGY Final Report Signed by: Dr. Jeff Cool
[2017-03-18] MEDS: oxyCODONE/ACETAMINOPHEN 5-325 MG TABLET PO PRN ×2 (13:44→21:13)
[2017-03-18] MEDS: clonazePAM 0.5 MG TABLET PO PRN ×2 (16:38→21:13)
[2017-03-19] MEDS: ENOXAPARIN 40 MG/0.4 ML SYRINGE SUBCUT SCH (00:24)
[2017-03-19 05:18] LABS: Basophils % 0.4 % (0.0-0.8); Eosinophils # 0.1 10*3/uL (0.0-0.87); Eosinophils % 1.4 % (0.00-10.9); Hematocrit 35.6 VOL% (42.0-52.0); Hemoglobin 11.9 GM/DL (14.0-18.0); Immature Granulocytes % 0.7 %; Immature Granulocytes Absolute 0.06 #; Lymphocytes # 1.1 10*3/uL (1.4-4.0); Lymphocytes % 13.4 % (21.2-54.2); Mean Corpuscular HGB Conc 33.4 GM/DL (32-36); Mean Corpuscular Hemoglobin 32 PG (27-34); Mean Corpuscular Volume 94.9 FL (87-102); Mean Platelet Volume 10.5 FL (9.6-12.0); Monocytes # 0.4 10*3/uL (0.11-0.8); Neutrophils # 6.6 10*3/uL (1.4-7.4); Neutrophils % 79.1 % (38.7-73.9); Platelet Count 194 T/CUMM (130-400); Red Blood Count 3.75 MC/CUMM (3.8-5.5); Red Cell Distribution Width 14.4 % (9.3-17.3); White Blood Count 8.4 T/CUMM (4-12)
--- NOTE | 2017-03-19 07:28 | Oncology Progress Note ---
Oncology Subjective PN Interval history: Final pathology is pending on this patient with suspected stage IV lung cancer of unknown cell type. This is stage IV because of the apparent tumor involvement of the upper posterior chest wall. This is causing the pain for which he was admitted. In addition, there was a questionable history of possible colon cancer. CTs of the chest, abdomen and pelvis do not mention any metastatic disease below the diaphragm. The patient has a very unusual discoloration of his right shoulder with tumor in that area. I am going to check an hCG level while we are awaiting pathology report. In addition, I am going to consult surgery for a skin biopsy of the area. I feel relatively certain that this patient has at least one malignancy and I am not sure what the skin abnormality of his right shoulder represents. Exam - Constitutional Vitals: Period Temp Pulse Resp BP Sys/Villaseñor Pulse Ox Last 24 Hr 97.7 F-98.6 F 65-99 13-20 107-157/60-92 94-100 Results - Labs CBC & BMP: 03/19/17 04:24 03/18/17 05:13 Quality Measures - Stroke Symptom Onset Unknown: No
--- NOTE | 2017-03-19 08:05 | Pulmonology Progress Note ---
Pulmonary - PN: Subj Interval history: This 36-year-old man came in with pain at the bottom of his right scapula. He was found to have what appears to be metastatic disease there. CT scan showed a right lung mass. He was taken for bronchoscopy this morning, please see that report. The right upper lobe is involved. There is visible tumor. There is compression of 2 of the 3 segments and total obstruction of the posterior segment right upper lobe. Pathology should be out in a day or 2. I do not think this would be resectable based on the medial spinal adenopathy noted on CT. certainly has the endobronchial appearance of a bronchogenic carcinoma. 03/19/2017 patient feels a little better. Abdominal CT showed splenomegaly but little else. Pathology from yesterday's bronchoscopy should be out tomorrow. Patient encouraged to stay until all the reports are back to decide about treatment. Exam (Progress Note) - Constitutional Vitals: Period Temp Pulse Resp BP Sys/Villaseñor Pulse Ox Last 24 Hr 97.7 F-98.6 F 65-99 16-20 107-157/60-92 94-99 Exam: Patient's alert responsive. vital signs normal. pupils react light. throat clear. neck supple no bruits. Chest reveals a few rhonchi on the right side left side is clear. Palpable mass at the bottom of right scapula. Heart normal rate rhythm no murmurs. abdomen soft nontender no masses. Extremities no clubbing cyanosis edema. Calves nontender. Results - Labs CBC & BMP: 03/19/17 04:24 03/18/17 05:13 Lab Results: I have reviewed the past 24 hour labs - Diagnostic Findings Procedure: Chest x-ray: image reviewed by me (Chest x-ray post-bronchoscopy is unchanged. Right hilar mass.) Assessment and Plan (1) Right hilar mass Status: Acute Assessment and plan: Reviewing the CT and his history I think is highly likely that this is a bronchogenic carcinoma. It can likely be assessed with fiberoptic bronchoscopy and we will do that in the morning. If not then a needle biopsy would be recommended. Since there is a lytic lesion in his scapula, this is likely to be stage IV disease. I do favor this being primary bronchogenic. 03/18/2017 await pathology from biopsies today. Suspect this is a bronchogenic carcinoma. 03/19/2017 suspect this will be a bronchogenic carcinoma. Await pathology. Likely will be tomorrow before that comes out. Current Visit: Yes (2) Right scapular lesion Status: Acute Assessment and plan: Painful mass lower end of his right scapula. Likely to be metastatic disease. This of course could be biopsied if need be. 03/18/2017 likely metastatic disease. Current Visit: Yes (3) Tobacco abuse Status: Acute Assessment and plan: Patient has [id number] smoking history. Has family history of lung cancer. Obviously needs to stop smoking. Newly diagnosed patients with lung cancer who stopped smoking at the time of the diagnosis on the average live twice as long as those who continue smoking. 03/19/2017 smoking cessation has been discussed with him. Current Visit: Yes
[2017-03-19] MEDS: MORPHINE 2 MG/1 ML SYRINGE IV PRN ×3 (08:59→20:50)
[2017-03-19] MEDS: NICOTINE 21 MG/24 HR PATCH TRANSDERM SCH (09:00)
[2017-03-19] MEDS: DEXAMETHASONE 4 MG TABLET PO SCH ×2 (09:00→20:50)
[2017-03-19] MEDS: clonazePAM 0.5 MG TABLET PO PRN ×2 (09:05→20:50)
--- NOTE | 2017-03-19 09:23 | Hospitalist Progress Note ---
Assessment and Plan (1) Metastatic cancer Status: Acute Assessment and plan: Suspected metastatic lung cancer patient is status post bronchoscopic and biopsy but his abdominal CT did not show any abnormality. the patient is being followed by the pulmonary and oncology will follow the recommendation Current Visit: Yes (2) Right scapular lesion Status: Acute Assessment and plan: Patient is on analgesics for pain control Current Visit: Yes (3) Tobacco abuse Status: Acute Assessment and plan: On nicotine patch Current Visit: Yes (4) Anemia Status: Acute Assessment and plan: Grossly stable from yesterday keep monitor Current Visit: Yes Hospitalist: Subjective Interval history: Mr. Grover is a 36 year old male with past history of colon cancer that presented with a chief complaint of right shoulder pain over scapula area. History of long-term smoking about pack since age 14. He was evaluated and found to have multiple pulmonary nodule largest in the right upper lobe. Multiple lymphadenopathies and destruction of the right scapular tip noted. Metastatic lung disease suspected patient underwent bronchoscopy with the washing and a biopsy 03/18/2070 . He continued to have no subjective symptoms except right scapular pain. Seen by Dr. Mendez today and has asked for the skin biopsy over his shoulder. He has a dark spot on the right shoulder and upper back. According to the patient and family he had this all his life since childhood but may be growing recently. Exam - Constitutional Vitals: Period Temp Pulse Resp BP Sys/Villaseñor Pulse Ox Last 24 Hr 97.7 F-98.6 F 65-87 18-20 107-157/60-82 94-99 General appearance: no acute distress - Respiratory Respiratory exam: Present: clear to auscultation bilaterally, chest wall tenderness (Tenderness right upper back at the scapular area). Absent: rales, rhonchi - GI/Abdominal GI/Abdominal exam: Present: normal bowel sounds, soft. Absent: distended, tenderness - Extremities Exam Extremities exam: Absent: edema - Neurological Exam Neurological exam: Present: alert, oriented X3 Results - Labs CBC & BMP: 03/19/17 04:24 03/18/17 05:13 Lab Results: I have reviewed the past 24 hour labs Quality Measures - Stroke Symptom Onset Unknown: No
[2017-03-19] MEDS: oxyCODONE/ACETAMINOPHEN 5-325 MG TABLET PO PRN ×2 (14:41→18:42)
[2017-03-19] MEDS ORDERED: LIDOCAINE 1% 20 ML VIAL IM ONE (16:14)
--- NOTE | 2017-03-19 16:51 | Operative Note ---
Date of procedure: 03/19/17 Pre-op diagnosis: Lung cancer with suspicious skin lesions right shoulder Post-op diagnosis: same Procedure: Full-thickness skin biopsy right shoulder Findings and technique: After informed consent was obtained the patient's right shoulder was prepped and draped in usual sterile fashion and local anesthesia infiltrated. An elliptical incision was made removing about a 1 cm area of skin from the posterior shoulder. This was removed full-thickness and closed with interrupted 4-0 nylon suture and the specimen sent to pathology directly. Anesthesia: local Surgeon / Physician: Rashard Montelongo III. Estimated blood loss: none Specimens: other (Full-thickness skin biopsy) Condition: stable Disposition: no change Results - Labs CBC & BMP: 03/19/17 04:24 03/18/17 05:13 Discharge Plan - Discharge Medications No Action No Known Home Medications [No Known Home Medications] - Follow Up or Referral - Forms/Instructions
[2017-03-20] MEDS: ENOXAPARIN 40 MG/0.4 ML SYRINGE SUBCUT SCH (00:21)
[2017-03-20] MEDS: MORPHINE 2 MG/1 ML SYRINGE IV PRN (00:59)
[2017-03-20 06:25] LABS: Basophils % 0.3 % (0.0-0.8); Eosinophils # 0.1 10*3/uL (0.0-0.87); Eosinophils % 0.9 % (0.00-10.9); Hemoglobin 11.9 GM/DL (14.0-18.0); Immature Granulocytes % 1.7 %; Immature Granulocytes Absolute 0.18 #; Lymphocytes # 1.5 10*3/uL (1.4-4.0); Mean Corpuscular Hemoglobin 32 PG (27-34); Mean Corpuscular Volume 93.8 FL (87-102); Mean Platelet Volume 10.2 FL (9.6-12.0); Monocytes # 0.5 10*3/uL (0.11-0.8); NRBC # 0.03 10*3/uL; Neutrophils # 8.1 10*3/uL (1.4-7.4); Neutrophils % 78.1 % (38.7-73.9); Platelet Count 204 T/CUMM (130-400); Red Blood Count 3.73 MC/CUMM (3.8-5.5); Red Cell Distribution Width 14.1 % (9.3-17.3); White Blood Count 10.3 T/CUMM (4-12)
[2017-03-20 06:52] LABS: Potassium 3.4 MMOL/L (3.5-5.1)
--- NOTE | 2017-03-20 08:41 | Oncology Progress Note ---
Oncology Subjective PN Interval history: The path report from tissue collected March 18, 2017 is class V, non-small cell carcinoma. This specimen number is [id number]. A second pathology specimen, [id number] is read as pulmonary adenocarcinoma. This represents stage IV adenocarcinoma lung. I am starting the patient on B12 and folic acid. He will need a Mediport catheter. I have discussed this with Dr. Reginald BARNETT. He has already done a skin biopsy of the right shoulder lesion. I am giving the patient information on adenocarcinoma of the lung. I will consider using Keytruda, Alimta and carboplatin, which is a combination that has just been approved in this situation. We will start the patient on B12 and folic acid which have to be started a week prior to institution of chemotherapy. He needs a Mediport catheter placement. I am presenting his case to tumor board today. Exam - Constitutional Vitals: Period Temp Pulse Resp BP Sys/Villaseñor Pulse Ox Last 24 Hr 97.5 F-99.0 F 65-88 18-20 118-142/59-82 94-95 Results - Labs CBC & BMP: 03/20/17 06:03 03/20/17 06:03 Quality Measures - Stroke Symptom Onset Unknown: No
[2017-03-20] MEDS ORDERED: CYANOCOBALAMIN 1000 MCG/1 ML VIAL IM ONE (08:43)
[2017-03-20] MEDS: oxyCODONE/ACETAMINOPHEN 5-325 MG TABLET PO PRN ×3 (08:52→21:02)
[2017-03-20] MEDS: DEXAMETHASONE 4 MG TABLET PO SCH ×2 (08:53→21:02)
[2017-03-20] MEDS: FOLIC ACID 1 MG TABLET PO SCH (08:53)
[2017-03-20] MEDS: NICOTINE 21 MG/24 HR PATCH TRANSDERM SCH (08:53)
--- NOTE | 2017-03-20 09:33 | Pulmonology Progress Note ---
Pulmonary - PN: Subj Interval history: This 36-year-old man came in with pain at the bottom of his right scapula. He was found to have what appears to be metastatic disease there. CT scan showed a right lung mass. He was taken for bronchoscopy this morning, please see that report. The right upper lobe is involved. There is visible tumor. There is compression of 2 of the 3 segments and total obstruction of the posterior segment right upper lobe. Pathology should be out in a day or 2. I do not think this would be resectable based on the medial spinal adenopathy noted on CT. certainly has the endobronchial appearance of a bronchogenic carcinoma. 03/19/2017 patient feels a little better. Abdominal CT showed splenomegaly but little else. Pathology from yesterday's bronchoscopy should be out tomorrow. Patient encouraged to stay until all the reports are back to decide about treatment. 03/20/2017 pathology has come back showing adenocarcinoma felt to be lung primary. He has stage IV disease. Likely metastatic disease to his right scapula. Dr. Mendez is planning chemotherapy. Case will be presented to tumor board. I will sign off. Please call if needed further. Exam (Progress Note) - Constitutional Vitals: Period Temp Pulse Resp BP Sys/Villaseñor Pulse Ox Last 24 Hr 97.5 F-99.0 F 65-88 18-20 118-142/59-82 94-95 Exam: Patient's alert responsive. vital signs normal. pupils react light. throat clear. neck supple no bruits. Chest reveals a few rhonchi on the right side left side is clear. Palpable mass at the bottom of right scapula. Heart normal rate rhythm no murmurs. abdomen soft nontender no masses. Extremities no clubbing cyanosis edema. Calves nontender. Little change from yesterday. Results - Labs CBC & BMP: 03/20/17 06:03 03/20/17 06:03 Lab Results: I have reviewed the past 24 hour labs Assessment and Plan (1) Right hilar mass Status: Acute Assessment and plan: Reviewing the CT and his history I think is highly likely that this is a bronchogenic carcinoma. It can likely be assessed with fiberoptic bronchoscopy and we will do that in the morning. If not then a needle biopsy would be recommended. Since there is a lytic lesion in his scapula, this is likely to be stage IV disease. I do favor this being primary bronchogenic. 03/18/2017 await pathology from biopsies today. Suspect this is a bronchogenic carcinoma. 03/19/2017 suspect this will be a bronchogenic carcinoma. Await pathology. Likely will be tomorrow before that comes out. 03/20/2017 pathology has come back showing primary pulmonary adenocarcinoma. Current Visit: Yes (2) Right scapular lesion Status: Acute Assessment and plan: Painful mass lower end of his right scapula. Likely to be metastatic disease. This of course could be biopsied if need be. 03/18/2017 likely metastatic disease. 03/20/2017 likely metastatic disease. Current Visit: Yes (3) Tobacco abuse Status: Acute Assessment and plan: Patient has [id number] smoking history. Has family history of lung cancer. Obviously needs to stop smoking. Newly diagnosed patients with lung cancer who stopped smoking at the time of the diagnosis on the average live twice as long as those who continue smoking. 03/19/2017 smoking cessation has been discussed with him. 03/20/2017 patient has been advised it would be useful to stop smoking. Current Visit: Yes
[2017-03-20] MEDS: clonazePAM 0.5 MG TABLET PO PRN (11:17)
[2017-03-20] MEDS ORDERED: POTASSIUM CHLORIDE 20 MEQ TABLET PO ONE (13:30)
--- NOTE | 2017-03-20 14:32 | Hospitalist Progress Note ---
Assessment and Plan (1) Metastatic cancer Status: Acute Assessment and plan: Adenocarcinoma of lung with local metastasis. Dr. Mendez plan to do chemotherapy as outpatient after chemotherapy access is in place Current Visit: Yes (2) Right scapular lesion Status: Acute Assessment and plan: Due to metastatic lesion patient is on analgesics for pain control Current Visit: Yes (3) Tobacco abuse Status: Acute Assessment and plan: On nicotine patch Current Visit: Yes (4) Anemia Status: Acute Assessment and plan: Grossly stable from yesterday Current Visit: Yes (5) Hypokalemia Status: Acute Assessment and plan: Given dose of potassium chloride 40 mEq orally Current Visit: Yes Hospitalist: Subjective Interval history: Mr. Grover is a 36 year old male with past history of colon cancer that presented with a chief complaint of right shoulder pain over scapula area. History of long-term smoking about pack since age 14. He was evaluated and found to have multiple pulmonary nodule largest in the right upper lobe. Multiple lymphadenopathies and destruction of the right scapular tip noted. Metastatic lung disease suspected patient underwent bronchoscopy with the washing and a biopsy 03/18/2070 . He continued to have no subjective symptoms except right scapular pain. Seen by Dr. Mendez today and has asked for the skin biopsy over his shoulder which was done yesterday. He has a dark spot on the right shoulder and upper back. According to the patient and family he had this all his life since childhood but may be growing recently. He has no acute symptoms and been afebrile biopsy result came back as pulmonary adenocarcinoma. He seemed to have a nonresected tumor and Dr. Marr has signed off. Dr. Crowley will present him to tumor board and plan to start chemotherapy. He is awaiting access placement to start chemotherapy as outpatient. Exam - Constitutional Vitals: Period Temp Pulse Resp BP Sys/Villaseñor Pulse Ox Last 24 Hr 97.5 F-99.0 F 65-88 18-20 118-142/59-85 94-96 General appearance: no acute distress - Respiratory Respiratory exam: Present: clear to auscultation bilaterally, chest wall tenderness (Tenderness right upper back at the scapular area). Absent: rales, rhonchi - GI/Abdominal GI/Abdominal exam: Present: normal bowel sounds, soft. Absent: distended, tenderness - Extremities Exam Extremities exam: Absent: edema - Neurological Exam Neurological exam: Present: alert, oriented X3 Results - Labs CBC & BMP: 03/20/17 06:03 03/20/17 06:03 Lab Results: I have reviewed the past 24 hour labs Quality Measures - Stroke Symptom Onset Unknown: No
--- NOTE | 2017-03-20 15:00 | Event Note ---
Mediport is been requested. The procedure and risk of been discussed in detail with the patient and his family. We discussed infection bleeding, blood clots, pneumothorax, injury to great vessels, etc. He understands these risks and wishes to proceed
[2017-03-21] MEDS ORDERED: VANCOMYCIN INJ 1,750 MG in SODIUM CHLORIDE 0.9% 500 ML IV ONE (07:00)
[2017-03-21] MEDS ORDERED: PNEUMOCOCCAL VACCINE (13 VALENT) 0.5 ML SYRINGE IM ONE (09:30)
[2017-03-21] MEDS ORDERED: HEPARIN 5,000 UNIT/1 ML VIAL ONE (10:16)
[2017-03-21] MEDS ORDERED: BUPIVACAINE MPF 0.25% /EPI 30 ML VIAL ONE (10:16)
[2017-03-21] MEDS ORDERED: PROPOFOL 200 MG/20 ML VIAL IV ONE (10:41)
[2017-03-21] MEDS ORDERED: ONDANSETRON 4 MG/2 ML VIAL ONE (10:41)
[2017-03-21] MEDS ORDERED: TISSUE ADHESIVE 1 EACH APPLICATOR TOP ONE (11:11)
[2017-03-21 12:07] VITALS: BP 128/70
--- NOTE | 2017-03-21 12:15 | Oncology Progress Note ---
Oncology Subjective PN Interval history: This patient's case was presented to tumor board. I am going to obtain a PET scan outpatient. He has been given information on his cancer and the combination of chemotherapy that I will plan to treat it with which would include Keytruda, Alimta and carboplatin. He has to be on folic acid for a week before starting this combination because it is necessary for the Alimta to actually function. The pathologist feels strongly that this is a primary adenocarcinoma of the lung rather than being related to any GI malignancy. In addition, we do not have sufficient tissue from the bronchoscopy to run EGFR. Admittedly EGFR and ALK would be unlikely to be positive in a male long- term smoker. I will order a "wet biopsy" to assess this and we can needle biopsy or perform some other type of biopsy using interventional radiology on the mass in his right scapular region. This patient has some psychological issues. In the past, he attempted suicide. He has also failed to return for colon evaluation in the past when he had some suspicious findings. This was approximately 10 years ago. We will set the patient up for an appointment to see me and we will await the results of the PET scan and then decide on any additional interventional studies. I discussed treatment plans with him and he appears receptive. I included the fact that we might want to consider a second biopsy of the area in his scapula but I did not plan to do that at this point. Exam - Constitutional Vitals: Period Temp Pulse Resp BP Sys/Villaseñor Pulse Ox Last 24 Hr 96.0 F-98.8 F 76-86 19-20 136-172/65-90 90-96 Results - Labs CBC & BMP: 03/20/17 06:03 03/20/17 06:03 Quality Measures - Stroke Symptom Onset Unknown: No Specialty Discharge - Follow Up or Referrals Follow up with: Marky Mendez MD [Physician] - 04/04/17 9:30 am (PET SCAN IS ON SAT.March AT 1230PM DR MENDEZ APPT IS ON March AT 930AM FOR LAB AND SEE DR MENDEZ AT 1130AM [id number])
--- NOTE | 2017-03-21 12:18 | Discharge Summary ---
Hospital Course - Hospital Course Hospital Course: Mr. Grover is a 36 year old male with past history of colon cancer that presented with a chief complaint of right shoulder pain over scapula area. History of long-term smoking about pack and half since age 14. He was evaluated and found to have multiple pulmonary nodule largest in the right upper lobe. Multiple lymphadenopathies and destruction of the right scapular tip noted. Metastatic lung disease suspected patient underwent bronchoscopy performed by Dr. Marr with the washing and a biopsy 03/18/2070 . Biopsy result was consistent with a pulmonary adenocarcinoma . He also has some dark spots on right shoulder and scapular region and underwent a skin biopsy on 03/19/2017. The biopsy result is still pending. Dr. Mendez has presented to the tumor board and plan to get a PET scan outpatient and then follow-up. There is a concern about his compliance. I have instructed patient to keep the appointment. He has been started on folic acid in anticipation of chemotherapy per Dr. Crowley. MediPort placement was also requested by Dr. Mendez and Dr. Montelongo plan to do today. Patient underwent PowerPort placement left subclavian vein under fluoroscopic guidance Diagnosis - Discharge Diagnosis (1) Metastatic cancer Status: Acute (2) Right scapular lesion Status: Acute (3) Tobacco abuse Status: Chronic (4) Anemia Status: Chronic (5) Hypokalemia Status: Acute Specialty Discharge - Follow Up or Referrals Follow up with: Marky Mendez MD [Physician] - 04/04/17 9:30 am (PET SCAN IS ON March AT 1230PM DR MENDEZ APPT IS ON March AT 930AM FOR LAB AND SEE DR MENDEZ AT 1130AM [id number]) Discharge Plan - Discharge Data Disposition: Disch To Home/Self Care Condition at Discharge: Stable Discharge Diet: advance to your usual diet Activity: resume usual activities as tolerated - Discharge Medications New oxyCODONE/ACETAMINOPHEN 5-325 [Percocet 5-325] 1 tablet PO Q6H PRN #30 tablet PRN Reason: Pain Moderate (4-7) Nicotine 21 mg/24 Hr Patch [Nicoderm CQ 21 mg/24 hr Patch] 1 patch TRANSDERM DAILY #0 patch - Follow Up or Referral Follow Up: Marky Mendez MD [Physician] - 04/04/17 9:30 am (PET SCAN IS ON March AT 1230PM DR MENDEZ APPT IS ON March AT 930AM FOR LAB AND SEE DR MENDEZ AT 1130AM [phone]) - Forms/Instructions Exam - Constitutional Vitals: Period Temp Pulse Resp BP Sys/Villaseñor Pulse Ox Last 24 Hr 96.0 F-98.8 F 63-86 19-20 115-172/63-90 90-96 General appearance: no acute distress - Respiratory Respiratory exam: Present: clear to auscultation bilaterally, chest wall tenderness (Tenderness right upper back at the scapular area). Absent: rales, rhonchi - GI/Abdominal GI/Abdominal exam: Present: normal bowel sounds, soft. Absent: distended, tenderness - Extremities Exam Extremities exam: Absent: edema - Neurological Exam Neurological exam: Present: alert, oriented X3 Discharge Results Procedures and tests throughout hospitalization: Pending Orders 03/18/17 AFB Culture/Smears Routine Fungal Culture w/ Prep Routine 03/18/17 08:07 Cytology Request Routine 03/21/17 IR FL guide spine inj Routine DS: Provider Date of admission: 03/16/17 23:16 Primary care physician: . No PCP Attending physician on admission: Marky Back MD Consults: 03/17/17 00:37 Consult to Case Mgmt/Social Srvs [CONS] Routine Reason for Case Mgmt/Social Srvs: Other Consult Comment: patient and family request briefing of insurance benefits given cancer dx 03/17/17 02:06 Consult to Pastoral Services [CONS] Routine Comment: Pastoral Screen: Request [facility] Visit Pastoral Screen Source of Request: Other Other Source Requesting: Nursing 03/17/17 07:55 Consult to Physician [CONS] Routine Comment: bony mets, uncertain primary Consulting Provider: Marky Mendez Person Notified: Dr. Mendez Date Notified: 03/17/17 Time Notified: 09:40 03/17/17 11:45 Consult to Physician [CONS] Routine Comment: lung mass with bony involvement Consulting Provider: Yossi Marr Person Notified: Dr. Marr Date Notified: 03/17/17 Time Notified: 11:47 03/19/17 09:06 Consult to Physician [CONS] Routine Comment: Skin biopsy of right shoulder Consulting Provider: Reginald,Bill III. Consulting Provider Notified: No When should Consulting Provider be notified: Now Consult to Specialist Group: Surgery When should Consulting Provider be notified: Now Person Notified: MIKI Date Notified: 03/19/17 Time Notified: 09:03/20/17 08:44 Consult to Physician [CONS] Routine Comment: Mediport. [place] Consulting Provider: ReginaldBill III. Consulting Provider Notified: Yes When should Consulting Provider be notified: Now Consult to Specialist Group: Surgery When should Consulting Provider be notified: Now Person Notified: MIKI Date Notified: 03/20/17 Time Notified: 14:21 Discharging clinician: Eloy Chapin MD
--- NOTE | 2017-03-21 12:23 | Operative Note ---
Date of procedure: 03/21/17 Pre-op diagnosis: Lung cancer Post-op diagnosis: same Procedure: PowerPort placement left subclavian vein under fluoroscopic guidance Findings and technique: After informed consent was obtained patient was brought the operating room and placed in supine position. After IV sedation was administered the patient's neck and chest was prepped and draped in usual sterile fashion. Local anesthesia was infiltrated and a small transverse incision made beneath the left clavicle where sharp dissection was carried down into the deltopectoral groove. No cephalic vein was identified to cannulate. The patient was then placed in Trendelenburg position and the subclavian vein then percutaneously accessed through the incision with a single stick. Guidewire was advanced without resistance under fluoroscopy and positioned in the superior vena cava. The introducer sheath was passed over the guidewire and the catheter introduced in the guidewire removed. Catheter was positioned at about 20 cm with the tip in the superior vena cava. This was attached to the PowerPort which is positioned in the subcutaneous pocket made with gentle and sharp dissection in the inferior aspect of the incision. The port was easily accessed aspirated and flushed and fluoroscopy once again used to check good positioning. The port was secured with Vicryl suture and the wound closed the deep layer of #3-0 Vicryl subcutaneous suture and the skin with a running 4- 0 Vicryl subcuticular suture and tissue adhesive. Anesthesia: MAC, local Surgeon / Physician: Rashard Montelongo III. Estimated blood loss: none Specimens: none sent Condition: stable Disposition: PACU Results - Labs CBC & BMP: 03/20/17 06:03 03/20/17 06:03 Discharge Plan - Discharge Data Disposition: Disch To Home/Self Care - Discharge Medications New oxyCODONE/ACETAMINOPHEN 5-325 [Percocet 5-325] 1 tablet PO Q6H PRN #30 tablet PRN Reason: Pain Moderate (4-7) Nicotine 21 mg/24 Hr Patch [Nicoderm CQ 21 mg/24 hr Patch] 1 patch TRANSDERM DAILY #0 patch - Follow Up or Referral Follow Up: Marky Mendez MD [Physician] - 04/04/17 9:30 am (PET SCAN IS ON March AT 1230PM DR MENDEZ APPT IS ON March AT 930AM FOR LAB AND SEE DR MENDEZ AT 1130AM [id number]) - Forms/Instructions
--- NOTE | 2017-03-21 12:24 | Anesthesia Post-Op ---
Anesthesia Post OP - Post Ansesthetic Evaluation Patient seen in post op: Yes Resp: within normal limits CV: within normal limits Mental: within normal limits Temp: within normal limits [id number]: within normal limits Nausea and Vomiting: within normal limits Pain: within normal limits
[2017-03-21] MEDS: NICOTINE 21 MG/24 HR PATCH TRANSDERM SCH (12:59)
[2017-03-21] MEDS: FOLIC ACID 1 MG TABLET PO SCH (13:00)
[2017-03-21] MEDS: DEXAMETHASONE 4 MG TABLET PO SCH (13:00)
[2017-03-21] MEDS ORDERED: fentaNYL 100 MCG/2 ML VIAL ONE (13:38)
[2017-03-21] MEDS ORDERED: MIDAZOLAM 2 MG/2 ML VIAL ONE ×2 (13:38→13:39)
--- NOTE | 2017-03-21 16:18 | Pathology Report from [facility] ---
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 DIAGNOSIS FOR STEPHON GROVER: RIGHT SCAPULAR TISSUE BIOPSY: Irritated seborrheic keratosis. COLLECTED DATE: 03/20/2017 [facility] REPORT DATE: 03/21/2017 ELECTRONICALLY SIGNED BY: Laura Cruz M.D. 03/21/2017 - 10:17:56 MTDTracy
== END 2017-03-21 14:00 | disposition home or self-care (01) | DRG 181 ==
LOC: N.ED 20:04 → N.EDINP 23:16 → SUATTDRO 23:16 → N.4E 23:38
PROVIDERS: ADMIT Student in an Organized Health Care Education/Training Program; ATTEND Internal Medicine
PROC: BRONCHB (2017-03-18 07:20)

== ENCOUNTER 2018-09-18 19:55 | Inpatient (IN) ==
[2018-09-18] MEDS ORDERED: MORPHINE 4 MG/1 ML VIAL IV STA ×2 (20:40→21:58)
[2018-09-18] MEDS ORDERED: ONDANSETRON 4 MG/2 ML VIAL IV STA ×2 (20:41→21:58)
[2018-09-18 21:24] LABS: Basophils % 0.4 % (0.0-0.8); Eosinophils # 0.2 10*3/uL (0.0-0.87); Eosinophils % 2.7 % (0.00-10.9); Hemoglobin 12.5 GM/DL (14.0-18.0); Immature Granulocytes % 0.3 %; Immature Granulocytes Absolute 0.02 #; Lymphocytes # 1.6 10*3/uL (1.4-4.0); Mean Corpuscular HGB Conc 32.1 GM/DL (32-36); Mean Corpuscular Hemoglobin 28 PG (27-34); Mean Corpuscular Volume 85.7 FL (87-102); Mean Platelet Volume 9.9 FL (9.6-12.0); Monocytes # 0.6 10*3/uL (0.11-0.8); Monocytes % 7.3 % (1.7-12.7); Neutrophils # 5.4 10*3/uL (1.4-7.4); Neutrophils % 69.3 % (38.7-73.9); Platelet Count 332 T/CUMM (130-400); Red Blood Count 4.55 MC/CUMM (3.8-5.5); Red Cell Distribution Width 13.3 % (9.3-17.3); White Blood Count 7.8 T/CUMM (4-12)
[2018-09-18 21:29] LABS: Alanine Aminotransferase 15 U/L (16-61); Albumin 3.2 G/DL (3.4-5.0); Alkaline Phosphatase 172 U/L (45-117); Aspartate Amino Transferase 29 U/L (0-37); Bilirubin,Total < 0.39 MG/DL (0.2-1.0); Blood Urea Nitrogen 17 MG/DL (7-18); Calcium 8.4 MG/DL (8.5-10.1); Glucose 100 MG/DL (74-106); Osmolality,Calculated 278.5 MOS/KG (273-304); Potassium 3.7 MMOL/L (3.5-5.1); Sodium 139 MMOL/L (136-145); Total Protein 7.4 G/DL (6.4-8.3)
[2018-09-18] MEDS ORDERED: ACETAMINOPHEN 325 MG TABLET PO PRN (22:26)
[2018-09-18] MEDS ORDERED: ONDANSETRON 4 MG/2 ML VIAL IV PRN (22:26)
[2018-09-18] MEDS ORDERED: ALBUTEROL/IPRATROPIUM 3 ML NEB RESP TX PRN (22:29)
[2018-09-18] MEDS: ENOXAPARIN 40 MG/0.4 ML SYRINGE SUBCUT SCH (23:41)
[2018-09-18] MEDS: HYDROmorphone 2 MG/1 ML VIAL IV PRN (23:42)
[2018-09-18] MEDS: SODIUM CHLORIDE 0.9% 1,000 ML IV SCH (23:48)
[2018-09-19] MEDS: HYDROmorphone 2 MG/1 ML VIAL IV PRN ×5 (06:03→23:41)
[2018-09-19 06:12] LABS: Basophils % 0.4 % (0.0-0.8); Eosinophils # 0.3 10*3/uL (0.0-0.87); Eosinophils % 3.3 % (0.00-10.9); Hemoglobin 11.8 GM/DL (14.0-18.0); Immature Granulocytes % 0.5 %; Immature Granulocytes Absolute 0.04 #; Lymphocytes # 1.3 10*3/uL (1.4-4.0); Lymphocytes % 17.1 % (21.2-54.2); Mean Corpuscular HGB Conc 31.1 GM/DL (32-36); Mean Corpuscular Hemoglobin 27 PG (27-34); Mean Corpuscular Volume 88.2 FL (87-102); Mean Platelet Volume 9.8 FL (9.6-12.0); Monocytes # 0.5 10*3/uL (0.11-0.8); Neutrophils # 5.5 10*3/uL (1.4-7.4); Neutrophils % 72.7 % (38.7-73.9); Platelet Count 315 T/CUMM (130-400); Red Blood Count 4.31 MC/CUMM (3.8-5.5); Red Cell Distribution Width 13.4 % (9.3-17.3); White Blood Count 7.6 T/CUMM (4-12)
[2018-09-19 06:24] LABS: Calcium 7.9 MG/DL (8.5-10.1); Osmolality,Calculated 277.7 MOS/KG (273-304); Potassium 3.8 MMOL/L (3.5-5.1)
[2018-09-19] MEDS: SODIUM CHLORIDE 0.9% 1,000 ML IV SCH ×2 (12:54→23:45)
[2018-09-19] MEDS: NICOTINE 21 MG/24 HR PATCH TRANSDERM SCH (12:54)
[2018-09-19] MEDS: PANTOPRAZOLE 40 MG TABLET PO SCH (12:54)
[2018-09-19 20:53] LABS: Apearance,Urine CLEAR (Clear); Bilirubin,Urine Negative (Negative); Blood, Urine Negative (Negative); Glucose,Urine (UA) Negative (Negative); Ketones,Urine Negative (Negative); Nitrite,Urine Negative (Negative); Protein,Urine Negative; RBC,Urine <1 /HPF (0-4); Squamous Epithelial Cell,Urine Occasional /HPF (0-10); Urine Color Straw (Yellow); Urine Urobilinogen < 2.0 EU/DL (0.2-1.0); WBC,Urine 2 /HPF (0-6)
[2018-09-19 20:55] LABS: Barbiturates Screen,Urine Negative (Negative); Benzodiazepines Screen,Urine Negative (Negative); Cannabinoid Screen,Urine Negative (Negative); Opiate Screen,Urine Negative (Negative); Phencyclidine Screen,Urine Negative (Negative)
[2018-09-19] MEDS: ENOXAPARIN 40 MG/0.4 ML SYRINGE SUBCUT SCH (23:40)
[2018-09-20] MEDS: HYDROmorphone 2 MG/1 ML VIAL IV PRN ×6 (03:00→21:24)
[2018-09-20 06:15] LABS: Risk Ratio 3.92; VLDL CHOLESTEROL 21.2 MG/DL
[2018-09-20] MEDS: NICOTINE 21 MG/24 HR PATCH TRANSDERM SCH (09:43)
[2018-09-20] MEDS: PANTOPRAZOLE 40 MG TABLET PO SCH (09:45)
[2018-09-20] MEDS ORDERED: diphenhydrAMINE 50 MG/1 ML VIAL IV ONE (10:41)
[2018-09-20] MEDS ORDERED: FAMOTIDINE 20 MG/2 ML VIAL IV ONE (10:42)
[2018-09-20] MEDS ORDERED: PALONOSETRON 0.25 MG/5 ML VIAL IV ONE (11:00)
[2018-09-20] MEDS ORDERED: DEXAMETHASONE INJ 20 MG in SODIUM CHLORIDE 0.9% 50 ML IV ONE (11:00)
[2018-09-20] MEDS ORDERED: fentaNYL 25 MCG/HR PATCH TRANSDERM SCH (11:00)
[2018-09-20] MEDS ORDERED: SODIUM CHLORIDE 0.9% IV ONE ×2 (12:00)
[2018-09-20] MEDS ORDERED: CARBOPLATIN IV ONE (12:00)
[2018-09-20] MEDS ORDERED: PACLITAXEL IV ONE (12:00)
[2018-09-20] MEDS: SODIUM CHLORIDE 0.9% 1,000 ML IV SCH (21:17)
[2018-09-20] MEDS: DOCUSATE SODIUM 100 MG CAPSULE PO SCH (21:20)
[2018-09-21] MEDS: ENOXAPARIN 40 MG/0.4 ML SYRINGE SUBCUT SCH (00:05)
[2018-09-21] MEDS: HYDROmorphone 2 MG/1 ML VIAL IV PRN ×2 (02:57→05:56)
[2018-09-21] MEDS: NICOTINE 21 MG/24 HR PATCH TRANSDERM SCH (09:38)
[2018-09-21] MEDS: DOCUSATE SODIUM 100 MG CAPSULE PO SCH (09:46)
[2018-09-21] MEDS: PANTOPRAZOLE 40 MG TABLET PO SCH (09:47)
[2018-09-21] MEDS ORDERED: oxyCODONE/ACETAMINOPHEN 5-325 MG TABLET PO PRN (11:02)
[2018-09-21] MEDS: SODIUM CHLORIDE 0.9% 1,000 ML IV SCH (11:06)
[2018-09-21 15:16] LABS: Barbiturates Screen,Urine Negative (Negative); Benzodiazepines Screen,Urine Negative (Negative); Cannabinoid Screen,Urine Negative (Negative); Opiate Screen,Urine Positive (Negative); Phencyclidine Screen,Urine Negative (Negative)
[2018-09-21] MEDS ORDERED: HEPARIN LOCK FLUSH 500 UNIT/5 ML SYRINGE IV ONE (15:47)
[2018-09-21 16:03] VITALS: BP 101/56
== END 2018-09-21 16:17 | disposition home or self-care (01) | DRG 948 ==
LOC: N.ED 19:55 → N.EDINP 22:20 → N.4E 23:09
PROVIDERS: ADMIT Internal Medicine; ATTEND Internal Medicine

== ENCOUNTER 2019-04-07 09:12 | Inpatient (IN) ==
[2019-04-07] MEDS ORDERED: SODIUM CHLORIDE 0.9% 2,000 ML IV STA (09:24)
[2019-04-07] MEDS ORDERED: ETOMIDATE 20 MG/10 ML VIAL IV ONE (09:36)
[2019-04-07] MEDS ORDERED: ROCURONIUM 100 MG/10 ML VIAL IV ONE (09:36)
[2019-04-07] MEDS ORDERED: PROPOFOL 1,000 MG/100 ML BOTTLE IV ONE (09:45)
[2019-04-07] MEDS ORDERED: CLINDAMYCIN INJ 900 MG in PREMIX 1 EACH IV STA (09:53)
[2019-04-07 09:54] LABS: ABG Base Excess 3.7 MMOL/L (-2.5-2.5); ABG HCO3 27.8 MMOL/L (20-26); ABG Oxygen Saturation 99.8 % (95-100); ABG PCO2 44.5 MM HG (35-48); ABG PH 7.419 (7.35-7.45); ABG TCO2 25.7 MMOL/L (23-27)
[2019-04-07 10:10] LABS: Basophils % 0.1 % (0.0-0.8); Hemoglobin 11.2 GM/DL (14.0-18.0); Immature Granulocytes % 4.8 %; Immature Granulocytes Absolute 0.36 #; Lymphocytes # 0.2 10*3/uL (1.4-4.0); Lymphocytes % 2.7 % (21.2-54.2); Mean Corpuscular Volume 83.1 FL (87-102); Monocytes % 2.8 % (1.7-12.7); Neutrophils % 89.6 % (38.7-73.9); Platelet Count 155 T/CUMM (130-400); Red Blood Count 4.21 MC/CUMM (3.8-5.5); Red Cell Distribution Width 16.8 % (9.3-17.3); White Blood Count 7.5 T/CUMM (4-12)
[2019-04-07] MEDS: PROPOFOL 1,000 MG/100 ML BOTTLE IV SCH ×5 (10:15→21:51)
[2019-04-07] MEDS ORDERED: DEXAMETHASONE 10 MG/1 ML VIAL IV STA (10:18)
[2019-04-07 10:19] LABS: INR 1.3; PT Patient Result 14.2 SECS; Partial Thromboplastin Time 27.5 SECS (0-40)
[2019-04-07 10:27] LABS: Apearance,Urine CLEAR (Clear); Bilirubin,Urine Negative (Negative); Blood, Urine Small mg/dL (Negative); Glucose,Urine (UA) Negative (Negative); Ketones,Urine 5 mg/dL (Negative); Mucus,Urine Occasional /LPF (Occasional); Nitrite,Urine Negative (Negative); Protein,Urine 30 MG/DL; RBC,Urine 9 /HPF (0-4); Squamous Epithelial Cell,Urine Occasional /HPF (0-10); Urine Color Yellow (Yellow); Urine Specific Gravity 1.013 (1.001-1.035); WBC,Urine 1 /HPF (0-6)
[2019-04-07 10:33] LABS: Albumin 2.5 G/DL (3.4-5.0); Bilirubin,Total 1.2 MG/DL (0.2-1.0); Calcium 7.8 MG/DL (8.5-10.1); Osmolality,Calculated 262.8 MOS/KG (273-304); Total Protein 6.4 G/DL (6.4-8.3)
[2019-04-07] MEDS ORDERED: MIDAZOLAM 2 MG/2 ML VIAL ONE ×2 (10:36→11:15)
[2019-04-07] MEDS ORDERED: MIDAZOLAM 2 MG/2 ML VIAL IV STA ×2 (10:38→11:15)
[2019-04-07 10:42] LABS: Barbiturates Screen,Urine Negative (Negative); Benzodiazepines Screen,Urine Negative (Negative); Cannabinoid Screen,Urine Negative (Negative); Opiate Screen,Urine Positive (Negative); Phencyclidine Screen,Urine Negative (Negative)
[2019-04-07 11:09] LABS: Band Neutrophils 12 % (0-10); Hypochromasia 1+; Lymphocytes 2 % (20-55); Metamyelocytes 2 %; Microcytosis 1+; Segmented Neutrophils 80 % (50-85); Total Cells Counted 100
[2019-04-07 11:10] LABS: Platelet Estimate Adequate; Polychromasia Slight
[2019-04-07] MEDS ORDERED: ONDANSETRON 4 MG/2 ML VIAL IV PRN (11:33)
[2019-04-07] MEDS: NICOTINE 21 MG/24 HR PATCH TRANSDERM SCH (12:50)
[2019-04-07] MEDS: ENOXAPARIN 40 MG/0.4 ML SYRINGE SUBCUT SCH (12:51)
[2019-04-07] MEDS: FAMOTIDINE 20 MG/2 ML VIAL IV SCH ×2 (12:52→23:44)
[2019-04-07] MEDS: POTASSIUM CHLORIDE 20 MEQ/15 ML UDCUP PER TUBE SCH ×3 (12:56→20:44)
[2019-04-07] MEDS: clonazePAM 0.5 MG TABLET PER TUBE SCH ×3 (12:56→23:44)
[2019-04-07] MEDS: MEROPENEM 1,000 MG in SODIUM CHLORIDE 0.9% 100 ML IV SCH ×2 (13:00→23:44)
[2019-04-07] MEDS: methylPREDNISolone SOD SUC 40 MG/1 ML VIAL IV SCH ×2 (15:06→23:44)
[2019-04-07] MEDS: LORazepam 2 MG/1 ML VIAL IV PRN (16:18)
[2019-04-07] MEDS: MORPHINE 4 MG/1 ML VIAL IV PRN (16:37)
[2019-04-07] MEDS: ALBUTEROL/IPRATROPIUM 3 ML NEB RESP TX SCH (19:26)
[2019-04-07] MEDS: ACETAMINOPHEN 325 MG/10.15 ML UDCUP PO PRN (20:44)
[2019-04-08] MEDS: ALBUTEROL/IPRATROPIUM 3 ML NEB RESP TX SCH ×4 (00:37→19:33)
[2019-04-08] MEDS: PROPOFOL 1,000 MG/100 ML BOTTLE IV SCH ×9 (01:08→23:09)
[2019-04-08 03:14] LABS: ABG Base Excess 4.2 MMOL/L (-2.5-2.5); ABG HCO3 28.2 MMOL/L (20-26); ABG Oxygen Saturation 99.3 % (95-100); ABG PH 7.466 (7.35-7.45); ABG TCO2 25.5 MMOL/L (23-27); Allen Test Positive; Pt O2 Delivery Device Ventilator
[2019-04-08 04:57] LABS: Hemoglobin 9.1 GM/DL (14.0-18.0); Immature Granulocytes % 1.9 %; Immature Granulocytes Absolute 0.05 #; Lymphocytes # 0.1 10*3/uL (1.4-4.0); Lymphocytes % 4.1 % (21.2-54.2); Mean Corpuscular HGB Conc 31.4 GM/DL (32-36); Mean Platelet Volume 11.1 FL (9.6-12.0); Monocytes % 1.9 % (1.7-12.7); Neutrophils % 92.1 % (38.7-73.9); Platelet Count 97 T/CUMM (130-400); Red Blood Count 3.41 MC/CUMM (3.8-5.5); Red Cell Distribution Width 17.1 % (9.3-17.3); White Blood Count 2.7 T/CUMM (4-12)
[2019-04-08 05:16] LABS: Calcium 7.1 MG/DL (8.5-10.1); Osmolality,Calculated 277.8 MOS/KG (273-304)
[2019-04-08 05:36] LABS: Band Neutrophils 12 % (0-10); Lymphocytes 2 % (20-55); Segmented Neutrophils 84 % (50-85); Total Cells Counted 100
[2019-04-08 05:41] LABS: Hypochromasia 1+; Microcytosis Slight; Platelet Estimate Decreased
[2019-04-08] MEDS: clonazePAM 0.5 MG TABLET PER TUBE SCH ×3 (06:03→17:03)
[2019-04-08] MEDS: POTASSIUM CHLORIDE 20 MEQ/15 ML UDCUP PER TUBE SCH ×4 (06:03→17:03)
[2019-04-08] MEDS: methylPREDNISolone SOD SUC 40 MG/1 ML VIAL IV SCH ×3 (06:17→23:58)
[2019-04-08] MEDS: NICOTINE 21 MG/24 HR PATCH TRANSDERM SCH (08:23)
[2019-04-08] MEDS ORDERED: LACTATED RINGERS 2,000 ML IV ONE (08:34)
[2019-04-08] MEDS: MEROPENEM 1,000 MG in SODIUM CHLORIDE 0.9% 100 ML IV SCH ×2 (09:19→17:03)
[2019-04-08] MEDS: fentaNYL INJ 1,250 MCG in SODIUM CHLORIDE 0.9% 225 ML IV PRN ×2 (09:19→20:30)
[2019-04-08] MEDS: FAMOTIDINE 20 MG/2 ML VIAL IV SCH (11:00)
[2019-04-08] MEDS: ENOXAPARIN 40 MG/0.4 ML SYRINGE SUBCUT SCH (11:00)
[2019-04-08] MEDS: GENTAMICIN INJ 600 MG in SODIUM CHLORIDE 0.9% 100 ML IV SCH (11:01)
[2019-04-08] MEDS: LACTATED RINGERS 1,000 ML IV SCH ×2 (11:39→19:15)
[2019-04-09] MEDS: MEROPENEM 1,000 MG in SODIUM CHLORIDE 0.9% 100 ML IV SCH ×3 (00:05→16:15)
[2019-04-09] MEDS: clonazePAM 0.5 MG TABLET PER TUBE SCH ×5 (00:05→23:05)
[2019-04-09] MEDS: ALBUTEROL/IPRATROPIUM 3 ML NEB RESP TX SCH ×4 (00:27→19:25)
[2019-04-09] MEDS: PROPOFOL 1,000 MG/100 ML BOTTLE IV SCH ×8 (02:11→23:23)
[2019-04-09] MEDS: LACTATED RINGERS 1,000 ML IV SCH ×3 (03:28→19:19)
[2019-04-09 04:00] LABS: Hematocrit 24.3 VOL% (42.0-52.0); Hemoglobin 7.3 GM/DL (14.0-18.0); Immature Granulocytes % 1.7 %; Immature Granulocytes Absolute 0.02 #; Lymphocytes # 0.1 10*3/uL (1.4-4.0); Lymphocytes % 10.7 % (21.2-54.2); Mean Platelet Volume 11.7 FL (9.6-12.0); Neutrophils % 82.6 % (38.7-73.9); Platelet Count 50 T/CUMM (130-400); Red Cell Distribution Width 17.2 % (9.3-17.3); White Blood Count 1.2 T/CUMM (4-12)
[2019-04-09 04:21] LABS: Albumin 1.8 G/DL (3.4-5.0); Bilirubin,Total 0.8 MG/DL (0.2-1.0); Calcium 7.6 MG/DL (8.5-10.1); Osmolality,Calculated 281.7 MOS/KG (273-304); Total Protein 5.2 G/DL (6.4-8.3)
[2019-04-09 04:30] LABS: ABG Base Excess 6.9 MMOL/L (-2.5-2.5); ABG HCO3 30.7 MMOL/L (20-26); ABG Oxygen Saturation 99.1 % (95-100); ABG PCO2 43.8 MM HG (35-48); ABG PH 7.464 (7.35-7.45); Allen Test Positive; Pt O2 Delivery Device Ventilator
[2019-04-09] MEDS ORDERED: POTASSIUM CHLORIDE RIDER 10 MEQ in PREMIX 1 EACH IV PRN (04:31)
[2019-04-09] MEDS ORDERED: MAGNESIUM SULF RIDER 2 GM in PREMIX 1 EACH IV ONE (04:33)
[2019-04-09] MEDS ORDERED: POTASSIUM CHLORIDE RIDER 100 ML IV ONE (04:42)
[2019-04-09] MEDS: POTASSIUM CHLORIDE RIDER 20 MEQ in PREMIX 1 EACH IV PRN (05:01)
[2019-04-09 05:18] LABS: Band Neutrophils 2 % (0-10); Lymphocytes 6 % (20-55); Segmented Neutrophils 92 % (50-85); Total Cells Counted 100
[2019-04-09 05:19] LABS: Anisocytosis 1+; Microcytosis 1+
[2019-04-09 05:20] LABS: Platelet Estimate Decreased
[2019-04-09] MEDS: fentaNYL INJ 1,250 MCG in SODIUM CHLORIDE 0.9% 225 ML IV PRN ×4 (05:32→21:58)
[2019-04-09] MEDS: methylPREDNISolone SOD SUC 40 MG/1 ML VIAL IV SCH ×3 (06:05→23:03)
[2019-04-09] MEDS: NICOTINE 21 MG/24 HR PATCH TRANSDERM SCH (08:01)
[2019-04-09] MEDS: GENTAMICIN INJ 600 MG in SODIUM CHLORIDE 0.9% 100 ML IV SCH (08:35)
[2019-04-09] MEDS: FILGRASTIM-SNDZ 480 MCG/0.8 ML SYRINGE SUBCUT SCH (09:29)
[2019-04-09] MEDS: FAMOTIDINE 20 MG/2 ML VIAL IV SCH ×3 (11:19→23:04)
[2019-04-09] MEDS: MORPHINE 4 MG/1 ML VIAL IV PRN (23:58)
[2019-04-10] MEDS: MEROPENEM 1,000 MG in SODIUM CHLORIDE 0.9% 100 ML IV SCH ×3 (01:12→17:45)
[2019-04-10] MEDS: ALBUTEROL/IPRATROPIUM 3 ML NEB RESP TX SCH ×4 (01:30→19:28)
[2019-04-10] MEDS: fentaNYL INJ 1,250 MCG in SODIUM CHLORIDE 0.9% 225 ML IV PRN ×2 (02:15→06:22)
[2019-04-10] MEDS: LACTATED RINGERS 1,000 ML IV SCH (03:07)
[2019-04-10 04:10] LABS: Hematocrit 24.9 VOL% (42.0-52.0); Hemoglobin 7.2 GM/DL (14.0-18.0); Lymphocytes # 0.3 10*3/uL (1.4-4.0); Lymphocytes % 7.2 % (21.2-54.2); Mean Corpuscular HGB Conc 28.9 GM/DL (32-36); Mean Corpuscular Volume 90.9 FL (87-102); Mean Platelet Volume 11.6 FL (9.6-12.0); Monocytes % 3.3 % (1.7-12.7); Neutrophils % 89.5 % (38.7-73.9); Red Blood Count 2.74 MC/CUMM (3.8-5.5); Red Cell Distribution Width 17.4 % (9.3-17.3); White Blood Count 3.6 T/CUMM (4-12)
[2019-04-10 04:12] LABS: Platelet Count 61 T/CUMM (130-400)
[2019-04-10 04:19] LABS: ABG Base Excess 8.9 MMOL/L (-2.5-2.5); ABG HCO3 33.4 MMOL/L (20-26); ABG Oxygen Saturation 98.4 % (95-100); ABG PCO2 46.4 MM HG (35-48); ABG PH 7.475 (7.35-7.45); ABG PO2 128.8 MM HG (80-95); ABG TCO2 34.8 MMOL/L (23-27); Allen Test Positive; Pt O2 Delivery Device Ventilator
[2019-04-10 04:47] LABS: Albumin 1.8 G/DL (3.4-5.0); Bilirubin,Total 0.4 MG/DL (0.2-1.0); Osmolality,Calculated 281.5 MOS/KG (273-304); Total Protein 5.1 G/DL (6.4-8.3)
[2019-04-10] MEDS ORDERED: MAGNESIUM SULF RIDER 4 GM in PREMIX 1 EACH IV PRN (05:05)
[2019-04-10] MEDS ORDERED: MAGNESIUM SULF RIDER 50 ML IV ONE (05:07)
[2019-04-10] MEDS: MAGNESIUM SULF RIDER 2 GM in PREMIX 1 EACH IV PRN (05:11)
[2019-04-10] MEDS: POTASSIUM CHLORIDE RIDER 20 MEQ in PREMIX 1 EACH IV PRN (05:11)
[2019-04-10] MEDS: clonazePAM 0.5 MG TABLET PER TUBE SCH ×4 (05:11→23:24)
[2019-04-10 06:19] LABS: Band Neutrophils 3 % (0-10); Hypochromasia 1+; Lymphocytes 4 % (20-55); Metamyelocytes 1 %; Microcytosis 1+; Myelocytes 2 %; Platelet Estimate Decreased; Segmented Neutrophils 88 % (50-85); Total Cells Counted 100
[2019-04-10] MEDS: methylPREDNISolone SOD SUC 40 MG/1 ML VIAL IV SCH ×3 (06:23→23:19)
[2019-04-10] MEDS ORDERED: MAGNESIUM SULF RIDER 2 GM in PREMIX 1 EACH IV ONE (08:17)
[2019-04-10] MEDS: FILGRASTIM-SNDZ 480 MCG/0.8 ML SYRINGE SUBCUT SCH (08:46)
[2019-04-10] MEDS: GENTAMICIN INJ 600 MG in SODIUM CHLORIDE 0.9% 100 ML IV SCH ×2 (08:46→10:59)
[2019-04-10] MEDS: NICOTINE 21 MG/24 HR PATCH TRANSDERM SCH (08:47)
[2019-04-10] MEDS: LEVOFLOXACIN INJ 750 MG in PREMIX 1 EACH IV SCH (09:06)
[2019-04-10] MEDS: MORPHINE 4 MG/1 ML VIAL IV PRN (11:05)
[2019-04-10] MEDS: LORazepam 2 MG/1 ML VIAL IV PRN (12:07)
[2019-04-10] MEDS ORDERED: oxyCODONE IR 5 MG TABLET PO PRN (13:00)
[2019-04-10] MEDS: MORPHINE ER 30 MG TABLET PO SCH ×2 (13:01→23:19)
[2019-04-10] MEDS ORDERED: GABAPENTIN 600 MG TABLET PO SCH (15:00)
[2019-04-10] MEDS: GABAPENTIN 300 MG CAPSULE PO SCH ×2 (15:51→23:19)
[2019-04-10] MEDS: ACETAMINOPHEN 325 MG/10.15 ML UDCUP PO PRN (16:18)
[2019-04-10] MEDS: METHYLPHENIDATE 5 MG TABLET PO SCH (23:19)
[2019-04-11] MEDS: MEROPENEM 1,000 MG in SODIUM CHLORIDE 0.9% 100 ML IV SCH ×3 (01:25→17:13)
[2019-04-11] MEDS: ALBUTEROL/IPRATROPIUM 3 ML NEB RESP TX SCH ×4 (01:30→20:48)
[2019-04-11 03:28] LABS: ABG Base Excess 10.5 MMOL/L (-2.5-2.5); ABG HCO3 34.2 MMOL/L (20-26); ABG Oxygen Saturation 93.9 % (95-100); ABG PCO2 46.9 MM HG (35-48); ABG PH 7.486 (7.35-7.45); ABG PO2 67.7 MM HG (80-95); ABG TCO2 32.2 MMOL/L (23-27); Allen Test Positive
[2019-04-11] MEDS: methylPREDNISolone SOD SUC 40 MG/1 ML VIAL IV SCH ×3 (06:08→23:45)
[2019-04-11] MEDS: clonazePAM 0.5 MG TABLET PER TUBE SCH ×3 (06:08→17:13)
[2019-04-11 06:38] LABS: Albumin 2.1 G/DL (3.4-5.0); Bilirubin,Total 0.5 MG/DL (0.2-1.0); Calcium 8.4 MG/DL (8.5-10.1); Osmolality,Calculated 268.2 MOS/KG (273-304); Total Protein 5.9 G/DL (6.4-8.3)
[2019-04-11 06:42] LABS: Basophils % 0.1 % (0.0-0.8); Hematocrit 30.5 VOL% (42.0-52.0); Immature Granulocytes % 6.5 %; Immature Granulocytes Absolute 0.51 #; Lymphocytes # 0.6 10*3/uL (1.4-4.0); Lymphocytes % 7.2 % (21.2-54.2); Mean Corpuscular HGB Conc 30.2 GM/DL (32-36); Mean Corpuscular Volume 86.4 FL (87-102); Mean Platelet Volume 11.2 FL (9.6-12.0); Monocytes % 3.3 % (1.7-12.7); Neutrophils % 82.9 % (38.7-73.9); Red Cell Distribution Width 17.3 % (9.3-17.3)
[2019-04-11 06:43] LABS: Hemoglobin 9.2 GM/DL (14.0-18.0); Platelet Count 85 T/CUMM (130-400); Red Blood Count 3.53 MC/CUMM (3.8-5.5); White Blood Count 7.8 T/CUMM (4-12)
[2019-04-11 06:59] LABS: Band Neutrophils 4 % (0-10); Lymphocytes 9 % (20-55); Platelet Estimate Decreased; Segmented Neutrophils 82 % (50-85); Total Cells Counted 100
[2019-04-11] MEDS: GABAPENTIN 300 MG CAPSULE PO SCH ×3 (09:34→20:58)
[2019-04-11] MEDS: METHYLPHENIDATE 5 MG TABLET PO SCH ×2 (09:34→21:02)
[2019-04-11] MEDS: PANTOPRAZOLE 40 MG TABLET PO SCH (09:34)
[2019-04-11] MEDS: MORPHINE ER 30 MG TABLET PO SCH ×2 (09:34→20:56)
[2019-04-11] MEDS: FOLIC ACID 1 MG TABLET PO SCH (09:34)
[2019-04-11] MEDS: NICOTINE 21 MG/24 HR PATCH TRANSDERM SCH (09:35)
[2019-04-11] MEDS: LEVOFLOXACIN INJ 750 MG in PREMIX 1 EACH IV SCH (09:36)
[2019-04-11] MEDS: FILGRASTIM-SNDZ 480 MCG/0.8 ML SYRINGE SUBCUT SCH (09:49)
[2019-04-12] MEDS: clonazePAM 0.5 MG TABLET PER TUBE SCH ×4 (00:04→17:08)
[2019-04-12] MEDS: ALBUTEROL/IPRATROPIUM 3 ML NEB RESP TX SCH ×4 (00:42→20:00)
[2019-04-12] MEDS: MEROPENEM 1,000 MG in SODIUM CHLORIDE 0.9% 100 ML IV SCH ×3 (00:45→17:08)
[2019-04-12 03:08] LABS: Allen Test Positive; Pt O2 Delivery Device Room Air
[2019-04-12 03:12] LABS: ABG Base Excess 9.7 MMOL/L (-2.5-2.5); ABG HCO3 33.3 MMOL/L (20-26); ABG Oxygen Saturation 88.6 % (95-100); ABG PCO2 45.6 MM HG (35-48); ABG PH 7.488 (7.35-7.45); ABG PO2 56.8 MM HG (80-95); ABG TCO2 29.9 MMOL/L (23-27)
[2019-04-12] MEDS: MORPHINE 4 MG/1 ML VIAL IV PRN ×3 (05:03→20:44)
[2019-04-12] MEDS: methylPREDNISolone SOD SUC 40 MG/1 ML VIAL IV SCH ×3 (06:44→23:52)
[2019-04-12 07:17] LABS: Basophils % 0.2 % (0.0-0.8); Hematocrit 29.5 VOL% (42.0-52.0); Hemoglobin 9.3 GM/DL (14.0-18.0); Immature Granulocytes % 12.1 %; Immature Granulocytes Absolute 1.38 #; Lymphocytes # 1.1 10*3/uL (1.4-4.0); Lymphocytes % 9.9 % (21.2-54.2); Mean Corpuscular HGB Conc 31.5 GM/DL (32-36); Mean Platelet Volume 11.4 FL (9.6-12.0); Monocytes % 3.2 % (1.7-12.7); Neutrophils % 74.6 % (38.7-73.9); Red Blood Count 3.43 MC/CUMM (3.8-5.5); Red Cell Distribution Width 17.2 % (9.3-17.3)
[2019-04-12 07:30] LABS: Platelet Count 120 T/CUMM (130-400); White Blood Count 11.4 T/CUMM (4-12)
[2019-04-12 07:42] LABS: Band Neutrophils 4 % (0-10); Hypochromasia 1+; Lymphocytes 10 % (20-55); Metamyelocytes 1 %; Microcytosis 1+; Platelet Estimate Adequate; Segmented Neutrophils 82 % (50-85); Total Cells Counted 100
[2019-04-12 07:49] LABS: Albumin 2.1 G/DL (3.4-5.0); Bilirubin,Total 0.7 MG/DL (0.2-1.0); Calcium 8.6 MG/DL (8.5-10.1); Total Protein 6.1 G/DL (6.4-8.3)
[2019-04-12] MEDS: FOLIC ACID 1 MG TABLET PO SCH (09:31)
[2019-04-12] MEDS: LEVOFLOXACIN INJ 750 MG in PREMIX 1 EACH IV SCH (09:31)
[2019-04-12] MEDS: MORPHINE ER 30 MG TABLET PO SCH ×2 (09:32→20:43)
[2019-04-12] MEDS: METHYLPHENIDATE 5 MG TABLET PO SCH ×2 (09:33→20:43)
[2019-04-12] MEDS: GABAPENTIN 300 MG CAPSULE PO SCH ×3 (09:33→20:43)
[2019-04-12] MEDS: PANTOPRAZOLE 40 MG TABLET PO SCH (09:33)
[2019-04-12] MEDS: NICOTINE 21 MG/24 HR PATCH TRANSDERM SCH (09:33)
[2019-04-12] MEDS: FILGRASTIM-SNDZ 480 MCG/0.8 ML SYRINGE SUBCUT SCH (10:49)
[2019-04-12] MEDS: MAGNESIUM SULF RIDER 2 GM in PREMIX 1 EACH IV PRN (11:03)
[2019-04-12] MEDS: POTASSIUM CHLORIDE RIDER 20 MEQ in PREMIX 1 EACH IV PRN (13:15)
[2019-04-13] MEDS: clonazePAM 0.5 MG TABLET PER TUBE SCH ×3 (00:02→13:35)
[2019-04-13] MEDS: MEROPENEM 1,000 MG in SODIUM CHLORIDE 0.9% 100 ML IV SCH ×2 (01:04→09:14)
[2019-04-13] MEDS: ALBUTEROL/IPRATROPIUM 3 ML NEB RESP TX SCH ×3 (02:10→13:30)
[2019-04-13] MEDS: methylPREDNISolone SOD SUC 40 MG/1 ML VIAL IV SCH (06:05)
[2019-04-13] MEDS: NICOTINE 21 MG/24 HR PATCH TRANSDERM SCH (09:12)
[2019-04-13] MEDS: GABAPENTIN 300 MG CAPSULE PO SCH (09:13)
[2019-04-13] MEDS: FOLIC ACID 1 MG TABLET PO SCH (09:13)
[2019-04-13] MEDS: PANTOPRAZOLE 40 MG TABLET PO SCH (09:13)
[2019-04-13] MEDS: METHYLPHENIDATE 5 MG TABLET PO SCH (09:13)
[2019-04-13] MEDS: LEVOFLOXACIN INJ 750 MG in PREMIX 1 EACH IV SCH (10:05)
[2019-04-13 12:13] VITALS: BP 116/66
[2019-04-13] MEDS: MORPHINE 4 MG/1 ML VIAL IV PRN (14:41)
[2019-04-13] MEDS: MORPHINE ER 30 MG TABLET PO SCH (14:44)
== END 2019-04-13 16:50 | disposition home or self-care (01) | DRG 133 ==
LOC: EDBD → EDUNIT# → N.ED 09:12 → SUATTDRO 10:11 → N.EDINP 10:11 → N.ICU 11:48 → N.TELEN 04-10 17:30
PROVIDERS: ADMIT Internal Medicine; ATTEND Internal Medicine

== ENCOUNTER 2019-05-18 19:09 | Inpatient (IN) ==
[2019-05-18] MEDS ORDERED: SODIUM CHLORIDE 0.9% 500 ML IV STA (19:37)
[2019-05-18] MEDS ORDERED: ONDANSETRON 4 MG/2 ML VIAL IV STA (19:37)
[2019-05-18] MEDS ORDERED: methylPREDNISolone SOD SUC 125 MG/2 ML VIAL IV STA (19:37)
[2019-05-18 19:50] LABS: Basophils % 0.2 % (0.0-0.8); Eosinophils # 0.1 10*3/uL (0.0-0.87); Eosinophils % 0.4 % (0.00-10.9); Hematocrit 39.1 VOL% (42.0-52.0); Hemoglobin 12.4 GM/DL (14.0-18.0); Immature Granulocytes % 0.7 %; Immature Granulocytes Absolute 0.09 #; Lymphocytes # 1.6 10*3/uL (1.4-4.0); Lymphocytes % 12.2 % (21.2-54.2); Mean Corpuscular HGB Conc 31.7 GM/DL (32-36); Mean Corpuscular Volume 85.2 FL (87-102); Mean Platelet Volume 9.4 FL (9.6-12.0); Monocytes % 7.4 % (1.7-12.7); Neutrophils % 79.1 % (38.7-73.9); Platelet Count 358 T/CUMM (130-400); Red Blood Count 4.59 MC/CUMM (3.8-5.5); Red Cell Distribution Width 16.2 % (9.3-17.3)
[2019-05-18 19:56] LABS: PT Patient Result 11.1 SECS
[2019-05-18 19:59] LABS: Albumin 3.2 G/DL (3.4-5.0); Bilirubin,Total 0.9 MG/DL (0.2-1.0); Calcium 9.5 MG/DL (8.5-10.1); Osmolality,Calculated 270.2 MOS/KG (273-304); Total Protein 6.9 G/DL (6.4-8.3)
[2019-05-18] MEDS ORDERED: ALBUTEROL NEB SOLN 5 MG/ML 20 ML/BOTTLE RESP TX SCH (20:00)
[2019-05-18 20:44] LABS: Apearance,Urine CLEAR (Clear); Bacteria,Urine Occasional /HPF (Few); Bilirubin,Urine Negative (Negative); Blood, Urine Negative (Negative); Glucose,Urine (UA) Negative (Negative); Ketones,Urine 20 mg/dL (Negative); Mucus,Urine Many /LPF (Occasional); Nitrite,Urine Negative (Negative); Protein,Urine Negative; RBC,Urine 5 /HPF (0-4); Squamous Epithelial Cell,Urine Occasional /HPF (0-10); Urine Color Amber (Yellow); Urine Specific Gravity 1.024 (1.001-1.035); WBC,Urine 1 /HPF (0-6)
[2019-05-18 21:07] LABS: Barbiturates Screen,Urine Negative (Negative); Benzodiazepines Screen,Urine Negative (Negative); Cannabinoid Screen,Urine Negative (Negative); Opiate Screen,Urine Positive (Negative); Phencyclidine Screen,Urine Negative (Negative)
[2019-05-18] MEDS ORDERED: BISACODYL 5 MG TABLET PO PRN (21:29)
[2019-05-18] MEDS ORDERED: NICOTINE 21 MG/24 HR PATCH TRANSDERM PRN (21:29)
[2019-05-18] MEDS ORDERED: ONDANSETRON 4 MG/2 ML VIAL IV PRN (21:29)
[2019-05-18] MEDS ORDERED: ACETAMINOPHEN 325 MG TABLET PO PRN (21:29)
[2019-05-18] MEDS ORDERED: diphenhydrAMINE CAP 25 MG CAPSULE PO PRN (21:29)
[2019-05-18] MEDS ORDERED: PROMETHAZINE 25 MG/1 ML VIAL IM PRN (21:29)
[2019-05-18 21:39] LABS: ABG Base Excess 2.6 MMOL/L (-2.5-2.5); ABG HCO3 26.6 MMOL/L (20-26); ABG Oxygen Saturation 93.6 % (95-100); ABG PCO2 42.7 MM HG (35-48); ABG PH 7.416 (7.35-7.45); ABG PO2 72.8 MM HG (80-95); ABG TCO2 24.4 MMOL/L (23-27); Allen Test Positive
[2019-05-18] MEDS: HYDROmorphone 2 MG/1 ML VIAL IV PRN (23:15)
[2019-05-19] MEDS: SODIUM CHLORIDE 0.9% 1,000 ML IV SCH ×4 (00:13→22:34)
[2019-05-19] MEDS: ALBUTEROL/IPRATROPIUM 3 ML NEB RESP TX SCH ×4 (00:37→19:30)
[2019-05-19] MEDS: CYCLOBENZAPRINE 10 MG TABLET PO PRN ×2 (02:18→22:34)
[2019-05-19] MEDS: HYDROmorphone 2 MG/1 ML VIAL IV PRN ×8 (03:57→21:27)
[2019-05-19] MEDS ORDERED: methylPREDNISolone SOD SUC 40 MG/1 ML VIAL IV SCH (04:00)
[2019-05-19 05:09] LABS: Basophils % 0.1 % (0.0-0.8); Hematocrit 36.6 VOL% (42.0-52.0); Hemoglobin 11.3 GM/DL (14.0-18.0); Immature Granulocytes % 0.5 %; Immature Granulocytes Absolute 0.04 #; Lymphocytes # 0.4 10*3/uL (1.4-4.0); Lymphocytes % 5.7 % (21.2-54.2); Mean Corpuscular HGB Conc 30.9 GM/DL (32-36); Mean Corpuscular Volume 86.9 FL (87-102); Monocytes % 1.8 % (1.7-12.7); Neutrophils % 91.9 % (38.7-73.9); Platelet Count 323 T/CUMM (130-400); Red Blood Count 4.21 MC/CUMM (3.8-5.5); Red Cell Distribution Width 16.2 % (9.3-17.3); White Blood Count 7.6 T/CUMM (4-12)
[2019-05-19 05:38] LABS: Anisocytosis Slight; Hypochromasia Slight; Lymphocytes 9 % (20-55); Microcytosis 1+; Polychromasia Few; Segmented Neutrophils 91 % (50-85); Stomatocytes Slight; Total Cells Counted 100
[2019-05-19 05:39] LABS: Platelet Estimate Normal
[2019-05-19 05:53] LABS: Albumin 2.8 G/DL (3.4-5.0); Bilirubin,Total 0.8 MG/DL (0.2-1.0); Calcium 8.9 MG/DL (8.5-10.1); Osmolality,Calculated 273.2 MOS/KG (273-304); Total Protein 7.1 G/DL (6.4-8.3)
[2019-05-19] MEDS: ENOXAPARIN 40 MG/0.4 ML SYRINGE SUBCUT SCH (08:59)
[2019-05-19] MEDS: PANTOPRAZOLE 40 MG TABLET PO SCH (08:59)
[2019-05-19] MEDS: POTASSIUM CHLORIDE 20 MEQ TABLET PO SCH ×3 (08:59→18:09)
[2019-05-19] MEDS ORDERED: oxyCODONE IR 5 MG TABLET PO PRN (09:44)
[2019-05-19] MEDS ORDERED: PROMETHAZINE 25 MG TABLET PO PRN (09:44)
[2019-05-19] MEDS: DEXAMETHASONE 4 MG TABLET PO SCH ×2 (10:27→21:27)
[2019-05-19] MEDS: MORPHINE ER 30 MG TABLET PO SCH ×2 (10:28→21:26)
[2019-05-19] MEDS: GABAPENTIN 600 MG TABLET PO SCH ×2 (15:38→21:26)
[2019-05-19] MEDS ORDERED: METHYLPHENIDATE 5 MG TABLET PO SCH (21:00)
[2019-05-19] MEDS: TEMAZEPAM 15 MG CAPSULE PO PRN (22:34)
[2019-05-20] MEDS: ALBUTEROL/IPRATROPIUM 3 ML NEB RESP TX SCH ×4 (01:22→19:30)
[2019-05-20 05:21] LABS: Osmolality,Calculated 274.8 MOS/KG (273-304)
[2019-05-20] MEDS: MORPHINE ER 30 MG TABLET PO SCH ×2 (08:14→22:24)
[2019-05-20] MEDS: DEXAMETHASONE 4 MG TABLET PO SCH ×2 (08:15→22:24)
[2019-05-20] MEDS: GABAPENTIN 600 MG TABLET PO SCH ×3 (08:16→22:23)
[2019-05-20] MEDS: METHYLPHENIDATE 5 MG TABLET PO SCH ×2 (08:16→14:39)
[2019-05-20] MEDS: PANTOPRAZOLE 40 MG TABLET PO SCH (08:16)
[2019-05-20] MEDS: ENOXAPARIN 40 MG/0.4 ML SYRINGE SUBCUT SCH (08:17)
[2019-05-20] MEDS: HYDROmorphone 2 MG/1 ML VIAL IV PRN ×3 (09:03→21:01)
[2019-05-20] MEDS: SODIUM CHLORIDE 0.9% 1,000 ML IV SCH ×2 (09:07→17:20)
[2019-05-20] MEDS: CYCLOBENZAPRINE 10 MG TABLET PO PRN (21:01)
[2019-05-20] MEDS: TEMAZEPAM 15 MG CAPSULE PO PRN (22:23)
[2019-05-21] MEDS: ALBUTEROL/IPRATROPIUM 3 ML NEB RESP TX SCH ×3 (00:11→12:41)
[2019-05-21] MEDS: SODIUM CHLORIDE 0.9% 1,000 ML IV SCH ×2 (02:50→09:59)
[2019-05-21] MEDS: HYDROmorphone 2 MG/1 ML VIAL IV PRN ×2 (06:10→09:53)
[2019-05-21] MEDS: DEXAMETHASONE 4 MG TABLET PO SCH (09:40)
[2019-05-21] MEDS: MORPHINE ER 30 MG TABLET PO SCH (09:41)
[2019-05-21] MEDS: METHYLPHENIDATE 5 MG TABLET PO SCH ×2 (09:41→19:04)
[2019-05-21] MEDS: GABAPENTIN 600 MG TABLET PO SCH ×2 (09:41→19:04)
[2019-05-21] MEDS: PANTOPRAZOLE 40 MG TABLET PO SCH (09:41)
[2019-05-21] MEDS: ENOXAPARIN 40 MG/0.4 ML SYRINGE SUBCUT SCH (09:44)
[2019-05-21 16:54] VITALS: BP 123/64
== END 2019-05-21 17:49 | disposition home health service (06) | DRG 136 ==
LOC: EDUNIT# → EDBD → N.ED 19:09 → N.EDINP 21:29 → N.4E 22:14
PROVIDERS: ADMIT Internal Medicine Cardiovascular Disease; ATTEND Internal Medicine Cardiovascular Disease

== ENCOUNTER 2019-06-07 00:43 | Inpatient (IN) ==
[2019-06-07] MEDS ORDERED: ALBUTEROL/IPRATROPIUM 3 ML NEB RESP TX STA (01:38)
[2019-06-07 01:53] LABS: Basophils % 0.3 % (0.0-0.8); Eosinophils % 0.3 % (0.00-10.9); Hematocrit 39.1 VOL% (42.0-52.0); Hemoglobin 11.8 GM/DL (14.0-18.0); Immature Granulocytes % 0.6 %; Immature Granulocytes Absolute 0.08 #; Lymphocytes # 1.1 10*3/uL (1.4-4.0); Lymphocytes % 8.6 % (21.2-54.2); Mean Corpuscular HGB Conc 30.2 GM/DL (32-36); Mean Corpuscular Volume 88.3 FL (87-102); Mean Platelet Volume 9.4 FL (9.6-12.0); Monocytes % 8.1 % (1.7-12.7); Neutrophils % 82.1 % (38.7-73.9); Platelet Count 444 T/CUMM (130-400); Red Blood Count 4.43 MC/CUMM (3.8-5.5); Red Cell Distribution Width 14.7 % (9.3-17.3); White Blood Count 12.9 T/CUMM (4-12)
[2019-06-07 01:53] LABS: Allen Test Positive; Pt O2 Delivery Device Simple Mask
[2019-06-07 01:54] LABS: ABG Base Excess 6.4 MMOL/L (-2.5-2.5); ABG HCO3 30.1 MMOL/L (20-26); ABG Oxygen Saturation 91.7 % (95-100); ABG PCO2 45.3 MM HG (35-48); ABG PH 7.448 (7.35-7.45); ABG PO2 62.6 MM HG (80-95); ABG TCO2 27.6 MMOL/L (23-27)
[2019-06-07 01:56] LABS: Albumin 2.9 G/DL (3.4-5.0); Calcium 9.3 MG/DL (8.5-10.1); Osmolality,Calculated 270.2 MOS/KG (273-304); Total Protein 7.3 G/DL (6.4-8.3)
[2019-06-07] MEDS ORDERED: ALBUTEROL 2.5 MG/3 ML NEB RESP TX STA (02:21)
[2019-06-07] MEDS ORDERED: ACETAMINOPHEN 325 MG TABLET PO PRN (03:41)
[2019-06-07] MEDS ORDERED: diphenhydrAMINE CAP 25 MG CAPSULE PO PRN (03:41)
[2019-06-07] MEDS ORDERED: NICOTINE 21 MG/24 HR PATCH TRANSDERM PRN (03:41)
[2019-06-07] MEDS ORDERED: ONDANSETRON 4 MG/2 ML VIAL IV PRN (03:41)
[2019-06-07] MEDS: SODIUM CHLORIDE 0.9% 1,000 ML IV SCH ×2 (04:01→20:55)
[2019-06-07] MEDS: MORPHINE 4 MG/1 ML VIAL IV PRN (04:01)
[2019-06-07] MEDS: methylPREDNISolone SOD SUC 40 MG/1 ML VIAL IV SCH ×3 (04:01→20:52)
[2019-06-07 04:48] LABS: ABG Base Excess 7.4 MMOL/L (-2.5-2.5); ABG Oxygen Saturation 93.3 % (95-100); ABG PCO2 48.3 MM HG (35-48); ABG PO2 67.4 MM HG (80-95); ABG TCO2 28.9 MMOL/L (23-27); Allen Test Positive
[2019-06-07] MEDS ORDERED: METOPROLOL TARTRATE 5 MG/5 ML VIAL IV ONE (05:02)
[2019-06-07] MEDS: DOXYCYCLINE HYCLATE INJ 100 MG in SODIUM CHLORIDE 0.9% 100 ML IV SCH ×2 (05:36→17:48)
[2019-06-07] MEDS ORDERED: PROMETHAZINE 25 MG TABLET PO PRN (07:43)
[2019-06-07] MEDS: ALBUTEROL/IPRATROPIUM 3 ML NEB RESP TX SCH ×3 (07:55→18:48)
[2019-06-07] MEDS ORDERED: oxyCODONE ER 20 MG TABLET PO PRN (08:00)
[2019-06-07] MEDS ORDERED: oxyCODONE IR 5 MG TABLET PO PRN (08:30)
[2019-06-07] MEDS: METHYLPHENIDATE 5 MG TABLET PO SCH ×2 (08:52→20:52)
[2019-06-07] MEDS: MORPHINE ER 30 MG TABLET PO SCH ×2 (08:53→20:52)
[2019-06-07] MEDS: PANTOPRAZOLE 40 MG TABLET PO SCH (08:53)
[2019-06-07] MEDS: DEXAMETHASONE 4 MG TABLET PO SCH ×2 (08:53→20:51)
[2019-06-07] MEDS: GABAPENTIN 600 MG TABLET PO SCH ×3 (08:53→20:52)
[2019-06-08] MEDS: ALBUTEROL/IPRATROPIUM 3 ML NEB RESP TX SCH ×2 (00:35→07:03)
[2019-06-08] MEDS: MORPHINE 4 MG/1 ML VIAL IV PRN (01:11)
[2019-06-08] MEDS: methylPREDNISolone SOD SUC 40 MG/1 ML VIAL IV SCH (04:56)
[2019-06-08 05:54] LABS: Hematocrit 31.5 VOL% (42.0-52.0); Hemoglobin 9.9 GM/DL (14.0-18.0); Immature Granulocytes % 0.9 %; Immature Granulocytes Absolute 0.06 #; Lymphocytes # 0.7 10*3/uL (1.4-4.0); Lymphocytes % 10.6 % (21.2-54.2); Mean Corpuscular HGB Conc 31.4 GM/DL (32-36); Mean Platelet Volume 9.2 FL (9.6-12.0); Monocytes % 5.1 % (1.7-12.7); Neutrophils % 83.4 % (38.7-73.9); Platelet Count 262 T/CUMM (130-400); Red Blood Count 3.58 MC/CUMM (3.8-5.5); Red Cell Distribution Width 14.6 % (9.3-17.3); White Blood Count 6.7 T/CUMM (4-12)
[2019-06-08 06:06] LABS: Osmolality,Calculated 273.1 MOS/KG (273-304)
[2019-06-08] MEDS: DOXYCYCLINE HYCLATE INJ 100 MG in SODIUM CHLORIDE 0.9% 100 ML IV SCH (08:02)
[2019-06-08] MEDS: DEXAMETHASONE 4 MG TABLET PO SCH (08:24)
[2019-06-08] MEDS: PANTOPRAZOLE 40 MG TABLET PO SCH (08:24)
[2019-06-08] MEDS: METHYLPHENIDATE 5 MG TABLET PO SCH (08:24)
[2019-06-08] MEDS: MORPHINE ER 30 MG TABLET PO SCH (08:24)
[2019-06-08] MEDS: GABAPENTIN 600 MG TABLET PO SCH (08:25)
[2019-06-08] MEDS ORDERED: HEPARIN LOCK FLUSH 500 UNIT/5 ML SYRINGE IV PRN (11:15)
[2019-06-08 11:33] VITALS: BP 132/77
[2019-06-08] MEDS: SODIUM CHLORIDE 0.9% 1,000 ML IV SCH (12:00)
== END 2019-06-08 11:50 | disposition hospice, home (50) | DRG 136 ==
LOC: EDBD → EDUNIT# → N.ED 00:43 → SUATTDRO 03:41 → N.EDINP 03:41 → N.ICU 04:01 → N.2E 16:20
PROVIDERS: ADMIT Internal Medicine; ATTEND Internal Medicine